=== PATIENT | male | born 1950 | race Two or more races ===

== ENCOUNTER → 2016-11-29 | Outpatient (CLI) | payer MEDICARE, OTHER ==
--- NOTE | 2016-12-13 00:05 | ECWPNPC ---
PATIENT NAME: ROBERT ARAUJO : 1950 GENDER: MALE VISIT DATE: 11/29/2016 DISCHARGE DATE: 11/29/16 1058 VISIT LOCKED DATE TIME: PHYSICIAN: STEPH LOUIS RESOURCE: STEPH LOUIS REASON FOR APPOINTMENT 1. BACK HISTORY OF PRESENT ILLNESS NEW PATIENT CONSULT: WHEN DID YOUR PAIN FIRST START? . BRIEFLY DESCRIBE HOW YOUR PAIN STARTED? . HOW DOES YOUR PAIN CHANGE WITH TIME? . DOES YOUR PAIN AWAKEN YOU FROM SLEEP? . HOW MANY HOURS OF SLEEP DO YOU NORMALLY GET? . ANY DIAGNOSTIC TESTING? . FACILITY WHERE TESTS WERE DONE? ____. PAIN TREATMENT TREATMENT YES CANCER HAVE YOU EVER HAD ANY TYPE OF CANCER?NO NO. PAIN SCREENING: PATIENT HAS A COMPLAINT OF ACUTE OR CHRONIC PAIN :YES FALL RISK SCREENING: SCREENING :NO FALLS IN THE PAST YEAR CASEY INVENTORY: QUESTIONNAIRE ASSESSEDTBD SCORE VALUE CALCULATED TBD TODAY'S VISIT: NOTES: REFERRED BY Handy CARPENTER PA-C [facility] NEUROSURGERY FOR LOW BACK PAIN. IS S/P LUMBAR FUSION L4 AND L5. COMPLETED IN 1993 AND LUMBAR DISCECTOMY COMPLETED IN 2003. SAW DR LERNER FOR CARDIOLOGY SECOND OPINION. DURING THE DISCUSSION AN MRI OF THE LUMBAR SPINE WAS ORDERED. PER PT A LARGE LUMBAR HERNIATED DISC WAS FOUND AND REFERRAL MADE TO DR MCKEON FOR A SURGICAL OPINION.AFTER SURGERY 2003 PAIN WAS UNDER CONTROL UNTIL FALL 2015. HAS HX OF A DRAINAGE FROM A DRAIN AREA IN THE LOW BACK. PAIN IS CENTERED ACROSS THE BACK TO HIPS. NOTES N/T IN LEFT LEG SINCE 1994. NO SHOOTING PAIN TO EITHER LEG. IS NOTING SLEEP IS DISRUPTED BY PAIN. IS ALSO NOTING PAIN RADIATING UP SPINE RIGHT SIDE TO BASE OF NECK. IS NOTING EAKNESS IN BOTH LEGS CAN NO LONGER WALK USUAL 1/2 MILE CIRCUIT WITHOUT SITTING DOWN.. CURRENT MEDICATIONS TAKING METFORMIN HCL 500 MG TABLET 1 TABLET WITH MEALS ORALLY DAILY TAKING IRON (FERROUS GLUCONATE) 256 (28 FE) MG TABLET ORALLY TAKES 65 MG DAILY AT SUPPERTIME, NOTES: TAKES 65MG TAKING METOPROLOL TARTRATE 50 MG TABLET 1 TABLET WITH FOOD ORALLY DAILY TAKING VENLAFAXINE HCL ER 150 MG CAPSULE EXTENDED RELEASE 24 HOUR 1 CAPSULE WITH FOOD ORALLY AT BEDTIME TAKING NITROGLYCERIN 0.4 MG TABLET SUBLINGUAL SUBLINGUAL NEEDED TAKING MELOXICAM 7.5 MG TABLET (PRIOR AUTH: RX REF#:[id number]) ORAL DAILY TAKING NITROGLYCERIN 0.4 MG/HR PATCH 24 HOUR (PRIOR AUTH: RX REF#:[id number]) TRANSDERMAL DAILY TAKING GABAPENTIN 300 MG CAPSULE (PRIOR AUTH: RX REF#:[id number]) ORAL DAILY (MON AND MONDAY) TAKING ATORVASTATIN CALCIUM 20 MG TABLET (PRIOR AUTH: RX REF#:[id number]) ORAL DAILY TAKING PANTOPRAZOLE SODIUM 40 MG TABLET DELAYED RELEASE (PRIOR AUTH: RX REF#:[id number]) ORAL DAILY TAKING LISINOPRIL 20 MG TABLET (PRIOR AUTH: RX REF#:[id number]) ORAL 2 IF NEEDED IN AM TAKING RANEXA 500 MG TABLET EXTENDED RELEASE 12 HOUR (PRIOR AUTH: RX REF#:[id number]) ORAL BID TAKING TOPROL XL 50 MG TABLET EXTENDED RELEASE 24 HOUR (PRIOR AUTH: RX REF#:[id number]) ORAL TAKING CLOPIDOGREL BISULFATE 75 MG TABLET (PRIOR AUTH: RX REF#:[id number]) ORAL DAILY TAKING ESOMEPRAZOLE MAGNESIUM 40 MG CAPSULE DELAYED RELEASE (PRIOR AUTH: RX REF#:[id number]) ORAL TAKING AMLODIPINE BESYLATE 5 MG TABLET (PRIOR AUTH: RX REF#:[id number]) ORAL DAILY TAKING ISOSORBIDE MONONITRATE ER 30 MG TABLET EXTENDED RELEASE 24 HOUR (PRIOR AUTH: RX REF#:[id number]) ORAL DAILY TAKING SYNTHROID 100 MCG TABLET (PRIOR AUTH: RX REF#:[id number]) ORAL DAILY TAKING VENLAFAXINE HCL ER 37.5 MG CAPSULE EXTENDED RELEASE 24 HOUR (PRIOR AUTH: RX REF#:[id number]) ORAL DAILY MEDICATION LIST REVIEWED AND RECONCILED WITH THE PATIENT PAST MEDICAL HISTORY HTN DM FL WITH HX STENT PLACEMENT ATYPICAL CHEST PAIN HYPOTHYROIDISM LOW BACK PAIN WITH LEFT SIDED RADICULAR PAIN FOLLOWING LUMBAR SURGERY ALLERGIES KEY-SELTZER: CHEST PAIN CHLORPHENIRAMINE MALEATE: UNSURE PHENYLTOLOXAMINE-ACETAMINOPHEN: UNSURE SURGICAL HISTORY L4-L5 DISC FUSION 1993 DISC REMOVAL LOW BACK 2009 CHOLECYSTECTOMY 1988 RIGHT SIDED HERNIA REPAIR 1970 LEFT SIDED HERNIA REPAIR 1980S FAMILY HISTORY FATHER: 95 YRS, DIAGNOSED WITH HEART DISEASE MOTHER: 89 YRS, DIAGNOSED WITH DIABETES SOCIAL HISTORY GENERAL: TOBACCO USE ARE YOU A:NONSMOKER QUIT SMOKING YEARS AGO ALCOHOL SCREENING DID YOU HAVE A DRINK CONTAINING ALCOHOL IN THE PAST YEAR?YES HOW OFTEN DID YOU HAVE A DRINK CONTAINING ALCOHOL IN THE PAST YEAR?MONTHLY OR LESS (1 POINT) POINTS1 INTERPRETATIONNEGATIVE CAFFEINE CAFFEINE USE?YES DIET: DIABETIC. EXERCISE: DAILY, WALKS, OUTDOORS PERSON, KEEPS BUSY WHEN HE CAN HEART RATE CAN DROP DOWN TO 50S AND HE WILL SLEEP ALL DAY (MD SAYS PROBLEM WITH BLOOD FLOW).. MARITAL STATUS: . MORMONISM [id number] MORMON NO MORAVIAN BELIEFS THAT WOULD IMPACT HEALTH CARE. LANGUAGE LANGUAGES SPOKEN:UZBEK LEARNING BARRIERS / SPECIAL NEEDS HEARING IMPAIRED?YES :HEARING AIDES VISION IMPAIRED?YES :CORRECTIVE LENSES COGNITIVELY IMPAIRED?NO READINESS TO LEARN?YES LEARNING PREFERENCES?NO LEARNING CAPABILITIES PRESENT?YES SPECIAL DEVICES?NO HOUSEHOLD COOK NEEDED?NO PAIN CLINIC PFS, CLERGY, PUBLIC HEALTH REFERRALS PFS REFERRAL NEEDED?NO HAS THE PATIENT BEEN EDUCATED REGARDING HIS/HER PLAN OF CARE?YES HAS THE PATIENT BEEN EDUCATED REGARDING PAIN, THE RISK FOR PAIN, THE IMPORTANCE OF EFFECTIVE PAIN MANAGEMENT, AND THE PAIN ASSESSMENT PROCESS?YES CLERGY REFERRAL NEEDED?NO PUBLIC HEALTH REFERRAL NEEDED?NO WAS THE PROVIDER NOTIFIED OF ANY PERTINENT INFO?NO PATIENT: ____. ADVANCE DIRECTIVES HEALTH CARE PROXY?YES NAME OF HCP ROBERT ARAUJO (SON)PHONE # [phone] DO YOU HAVE A COPY WITH YOU?NO DO YOU HAVE A DNR?NO WOULD YOU LIKE MORE INFORMATION?NO LIVING WILL?YES DO YOU HAVE A COPY WITH YOU?NO POWER OF PROJECT COORDINATOR RN?YES NAME OF POA? PHYIILS Winnie [phone] DO YOU HAVE A COPY WITH YOU?NO HAVE YOU HAD A COPY OF ANY ADVANCED DIRECTIVE (LISTED ABOVE) ON A PREVIOUS MEDICAL RECORDS AT [facility]?NO HOSPITALIZATION/MAJOR DIAGNOSTIC PROCEDURE SEE ABOVE HAD CARDIAC CATH 1 WEEK AGO (NOV 17) WITH RESULTS NEGATIVE REVIEW OF SYSTEMS REVIEWED BY: PROVIDER: . CONSTITUTIONAL: ANY CHANGE IN YOUR MEDICAL CONDITION? NO . CHILLS NO . FEVER NO . INFECTION: DO YOU HAVE NEW INFECTIONS? NO . DO YOU HAVE HISTORY OF MRSA? NO . MUSCULOSKELETAL: ANY NEW PATTERNS OF PAIN OR NUMBNESS? NO . SYTEMIC LUPUS NO . GASTROENTEROLOGY: ANY NEW CHANGE IN BOWEL CONTROL? NO . BARRETTS ESOPHAGUS NO . CIRRHOSIS NO . HEPATITIS NO . LIVER FAILURE NO . ACID REFLUX YES . UNEXPLAINED WEIGHT LOSS NO . GENITOURINARY: ANY NEW CHANGE IN BLADDER CONTROL? NO . IS THERE A CHANCE YOU COULD BE ? NO . HEMATOLOGY/LYMPH: DO YOU TAKE ANY BLOOD THINNERS? (FOR EXAMPLE- COUMADIN, PLAVIX, AGGRENOX, PLATEL, PRADAXA, OR XARELTO) YES . WHEN WAS YOUR LAST DOSE? DATE: TIME: . LOW PLATELET COUNT NO . SICKLE CELL DISEASE NO . VON WILLIEBRANDS NO . FACTOR V LEIDEN NO . THALLASEMIA NO . ANEMIA NO . EASY BRUISING NO . NEUROLOGY: HAVE YOU FALLEN IN THE PAST 6 MONTHS? NO . ANY NEW EXTREMITY NUMBNESS OR WEAKNESS? NO . HEAD INJURY NO . DEMENTIA NO . CEREBRAL PALSY NO . MULTIPLE SCLEROSIS NO . DIZZINESS NO . HEADACHE NO . STROKES HX TIA . VERTIGO NO . CARDIOLOGY: DO YOU HAVE A PACEMAKER OR DEFIBRILLATOR? NO . ANGINA NO . HEART ATTACK YES - 2014 - ON PLAVIX EVER SINCE . HEART SURGERY NO . CONGESTIVE HEART FAILURE/FLUID OVERLOAD NO . CHEST PAIN HX OF CHEST [place]ON AND SPASMS. HAD CARDIAC CATH LAST WEEK - REPORTED ALL CLEAR. HAS HX OF INTERMITTANT BRADYCARDIA . HIGH BLOOD PRESSURE YES . IRREGULAR HEART BEAT YES, AT TIMES . RESPIRATORY: SLEEP APNEA NO TESTED . HAVE YOU BEEN SICK IN THE PAST WEEK? NO . FEVER NO . FLU LIKE SYMPTOMS? NO . CPAP NO . BYPAP NO . ASTHMA NO . EMPHYSEMA NO . CHRONIC LUNG DISEASES NO . SHORTNESS OF BREATH ON EXERTION YES . DO YOU USE ANY TYPE OF TOBACCO (SMOKE, SMOKELESS, CHEW)? NO . COUGH NO . SNORING NO . INTEGUMENTARY: DO YOU HAVE ANY RASHES OR OPEN SORES? NO . ALLERGIC/IMMUNO: ARE YOU ALLERGIC TO SHELLFISH OR IV DYE? NO . ANY NEW ALLERGIES? NO . PSYCHIATRIC: DO YOU HAVE THOUGHTS OF HURTING YOURSELF OR SOMEONE ELSE? NO . ARE YOU ABUSED, NEGLECTED, OR IN AN UNSAFE ENVIRONMENT? NO . ENDOCRINOLOGY: ARE YOU DIABETIC? YES - 79- 115 BS . THYROID DISORDER HYPOTHYROID - ON REPLACEMENT . OTHER: DO YOU NEED ANY PRESCRIPTIONS? NO . IF YES, PLEASE LIST: ____ . ANY NEW PROBLEMS WITH YOUR MEDICATIONS? NO . WHEN DID YOU LAST EAT? ____ . WHEN DID YOU LAST DRINK? ____ . WHAT DID YOU LAST DRINK? ____ . NAME OF PERSON DRIVING YOU HOME? ____ . DO YOU HAVE ANY OTHER QUESTIONS OR CONCERNS NO . VITAL SIGNS WT 201.4 LBS, HT 5 FT 6 IN, BMI 32.50 INDEX, BP 126/69 MM HG, HR 62 /MIN, RR 18 /MIN, OXYGEN SAT % 95, REVIEWED BY: NL. EXAMINATION GENERAL EXAMINATION: GENERAL APPEARANCE:WELL GROOMED, OBESE. PSYCHAFFECT FLAT, ALERT , ORIENTED X 3 . HEENT:NORMOCEPHALIC, NO LYMPHADENOPATHY, NO THYROMEGLY. LUNGS:CLEAR TO AUSCULTATION BILATERALLY, NO WHEEZES, RALES OR RHONCHI. HEART:NO CAROTID BRUITS,, HEART RATE REGULAR, NORMAL S1S2, NORMAL. MUSCULOSKELETAL:MUSCLE STRENGTH TESTING 5/5 BILATERAL UPPER EXTREMITIES 4+ LEFTLE, 5- RLE. TENDER TO PALPATION OVER LUMBAR SPINOUS PROCESSES, BILATERAL SACRAL ILIAC JOINTS. HEALED SKIN LESION AT BASE OF INCISION , NO ERRYTHEMA, NO EXUDATE. CAN FLEX TO 30 DEGREES, EXTEND TO 10 DEGREES. SLR + ON RIGHT AT 20 DEGREES. PAIN WITH PELVIC COMPRESSION AND PATTRICKS TESTING ON RIGHT. . JOINTS:RIGHT ANKLE, KNEES. NEUROLOGIC EXAM:SENS CHANGE RIGHT ANKLE, LATERAL LEFT THIGH. DTR'S TRACE UPPER AND LOWER EXTREMITIES. NO CLONUS. . DIAGNOSTIC TESTS REVIEWEDMRI OF LUMBAR SPINE WITH AND WITHOUT CONTRAST COMPLETED ON 10/19/16 DEMONSTATES LARGE DISC HERNIATION AT L3 WITH SEVERE IMPINGEMENT ON THE LEFT. ALSO NOTED IS A DISC HERNIATION AT L5 WITH MILD IMPINGEMENT. THE RADIALOGIST BASILIO DOWNING MD ALSO REPORTS THAT HE DID LOOK FOR REPORTED SINUS TRACT FROM PREVIOUS SURGERY - SLIGHT EDEMA IS NOTED IN THE LOWER LEFT ASPECT BUT NO DEFINITE TRACT IS SEEN. . 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 NEED OK TO PUT PLAVIX ON HOLD FOR 7 DAYS. WITH PROCEDURE ON DAY 8 (DR LERNER AND DR AGUILLON [facility] CARDIOLOG[facility]) HOLD DIABETES MEDS AM OF PROCEDUREKEEP WALKING. MEDS PER PRIMARY DOCTOR. PREVENTIVE MEDICINE REVIEWED PRE PROCEDURE CARE AND DISCUSSED PROCEDURE AND EXPECTATIONS/ PT EXPRESSED UNDERSTANDING OF ALL. PROCEDURE CODES FA211 ESTABILISHED PATIENT [facility] FACILITY CHARGE DISPOSITION & COMMUNICATION FOLLOW UP AFTER INJECTION (REASON: CHECK AUTH FOR BILATERAL TRANFORAMINAL EPIDURAL/ GET OK TO STOP PLAVIX) ELECTRONICALLY SIGNED BY RANJEET GUIDO ON 12/12/2016 AT 03:53 PM EDT DISCLAIMER : THIS IS A VISIT SUMMARY EXTRACTED FROM THE [employer] CHART. IT IS NOT A COPY OF THE [employer] PROGRESS NOTE. LORRIE
== END ==
LOC: M PAIN 09:15
PROVIDERS: ATTEND Nurse Practitioner Family
DX: M51.26 Other intervertebral disc displacement, lumbar region (principal); M96.1 Postlaminectomy syndrome, not elsewhere classified; I10 Essential (primary) hypertension; E11.9 Type 2 diabetes mellitus without complications; E03.9 Hypothyroidism, unspecified; I25.2 Old myocardial infarction; Z95.5 Presence of coronary angioplasty implant and graft; Z79.84 Long term (current) use of oral hypoglycemic drugs; Z79.899 Other long term (current) drug therapy; Z87.891 Personal history of nicotine dependence; Z88.8 Allergy status to other drugs, medicaments and biological substances

== ENCOUNTER → 2016-12-28 | Outpatient (CLI) | payer MEDICARE, OTHER ==
--- NOTE | 2017-01-09 23:54 | ECWPNPC ---
PATIENT NAME: ROBERT ARAUJO : 1950 GENDER: MALE VISIT DATE: 12/28/2016 DISCHARGE DATE: 12/28/16 1307 VISIT LOCKED DATE TIME: PHYSICIAN: LAUREEN TREVIZO RESOURCE: LAUREEN TREVIZO REASON FOR APPOINTMENT 1. LOW BACK PAIN HISTORY OF PRESENT ILLNESS HISTORY OF PRESENT ILLNESS: PAIN THE PATIENT DESCRIBES THE PAIN... 66 YEAR OLD MALE PATIENT WITH HISTORY OF CHRONIC LOW BACK PAIN. PATIENT DESCRIBES THE PAIN TENDER AND SORE AND HAVING IT ALL THE TIME WITH A PAIN SCORE OF 6/10. PATIENT RECEIVED A CAUDAL EPIDURAL TODAY AND REPORTS THE PAIN IS STILL PRESENT AT THIS TIME. PATIENT STATES THAT HIS PAIN GOES DOWN HIS LEGS AND MAKES IT DIFFICULT TO DO EVERYDAY THINGS. PATIENT DENIES UNEXPLAINABLE WEIGHT LOSS, FEVER, CHILLS, NEW CHANGES ON HIS URINARY OR BOWEL CONTROL. FALL RISK SCREENING: SCREENING :NO FALLS IN THE PAST YEAR CURRENT MEDICATIONS TAKING METFORMIN HCL 500 MG TABLET 1 TABLET WITH MEALS ORALLY DAILY TAKING IRON (FERROUS GLUCONATE) 256 (28 FE) MG TABLET ORALLY TAKES 65 MG DAILY AT SUPPERTIME TAKING METOPROLOL TARTRATE 50 MG TABLET 1 TABLET WITH FOOD ORALLY DAILY TAKING VENLAFAXINE HCL ER 150 MG CAPSULE EXTENDED RELEASE 24 HOUR 1 CAPSULE WITH FOOD ORALLY AT BEDTIME, NOTES: RAN OUT AND HASN'T RECEIVED IT YET TAKING NITROGLYCERIN 0.4 MG TABLET SUBLINGUAL SUBLINGUAL NEEDED TAKING MELOXICAM 7.5 MG TABLET (PRIOR AUTH: RX REF#:[id number]) ORAL DAILY TAKING NITROGLYCERIN 0.4 MG/HR PATCH 24 HOUR (PRIOR AUTH: RX REF#:[id number]) TRANSDERMAL DAILY TAKING GABAPENTIN 300 MG CAPSULE (PRIOR AUTH: RX REF#:[id number]) ORAL DAILY (MON AND MONDAY) TAKING ATORVASTATIN CALCIUM 20 MG TABLET (PRIOR AUTH: RX REF#:[id number]) ORAL DAILY TAKING PANTOPRAZOLE SODIUM 40 MG TABLET DELAYED RELEASE (PRIOR AUTH: RX REF#:[id number]) ORAL DAILY TAKING LISINOPRIL 20 MG TABLET (PRIOR AUTH: RX REF#:[id number]) ORAL 2 IF NEEDED IN AM TAKING RANEXA 500 MG TABLET EXTENDED RELEASE 12 HOUR (PRIOR AUTH: RX REF#:[id number]) ORAL BID TAKING TOPROL XL 50 MG TABLET EXTENDED RELEASE 24 HOUR (PRIOR AUTH: RX REF#:[id number]) ORAL TAKING CLOPIDOGREL BISULFATE 75 MG TABLET (PRIOR AUTH: RX REF#:[id number]) ORAL DAILY TAKING ESOMEPRAZOLE MAGNESIUM 40 MG CAPSULE DELAYED RELEASE (PRIOR AUTH: RX REF#:[id number]) ORAL TAKING AMLODIPINE BESYLATE 5 MG TABLET (PRIOR AUTH: RX REF#:[id number]) ORAL DAILY TAKING ISOSORBIDE MONONITRATE ER 30 MG TABLET EXTENDED RELEASE 24 HOUR (PRIOR AUTH: RX REF#:[id number]) ORAL DAILY TAKING SYNTHROID 100 MCG TABLET (PRIOR AUTH: RX REF#:[id number]) ORAL DAILY TAKING VENLAFAXINE HCL ER 37.5 MG CAPSULE EXTENDED RELEASE 24 HOUR (PRIOR AUTH: RX REF#:[id number]) ORAL DAILY MEDICATION LIST REVIEWED AND RECONCILED WITH THE PATIENT PAST MEDICAL HISTORY HTN DM LA WITH HX STENT PLACEMENT ATYPICAL CHEST PAIN HYPOTHYROIDISM LOW BACK PAIN WITH LEFT SIDED RADICULAR PAIN FOLLOWING LUMBAR SURGERY ALLERGIES KEY-SELTZER: CHEST PAIN CHLORPHENIRAMINE MALEATE: UNSURE PHENYLTOLOXAMINE-ACETAMINOPHEN: UNSURE SOCIAL HISTORY GENERAL: TOBACCO USE ARE YOU A:NONSMOKER QUIT SMOKING YEARS AGO ALCOHOL SCREENING DID YOU HAVE A DRINK CONTAINING ALCOHOL IN THE PAST YEAR?YES POINTS1 INTERPRETATIONNEGATIVE HOW OFTEN DID YOU HAVE A DRINK CONTAINING ALCOHOL IN THE PAST YEAR?MONTHLY OR LESS (1 POINT) CAFFEINE CAFFEINE USE?YES DIET: DIABETIC. EXERCISE: DAILY, WALKS, OUTDOORS PERSON, KEEPS BUSY WHEN HE CAN HEART RATE CAN DROP DOWN TO 50S AND HE WILL SLEEP ALL DAY (MD SAYS PROBLEM WITH BLOOD FLOW).. MARITAL STATUS: . GNOSTICISM [id number] ISLAM NO EPISCOPAL BELIEFS THAT WOULD IMPACT HEALTH CARE. 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 VISION IMPAIRED?YES :CORRECTIVE LENSES COGNITIVELY IMPAIRED?NO READINESS TO LEARN?YES LEARNING PREFERENCES?NO LEARNING CAPABILITIES PRESENT?YES EMOTIONAL BARRIERS?NO SPECIAL DEVICES?NO EMERGENCY SERVICE RESTORER NEEDED?NO PAIN CLINIC PFS, CLERGY, PUBLIC HEALTH REFERRALS PFS REFERRAL NEEDED?NO CLERGY REFERRAL NEEDED?NO PUBLIC HEALTH REFERRAL NEEDED?NO WAS THE PROVIDER NOTIFIED OF ANY PERTINENT INFO?NO HAS THE PATIENT BEEN EDUCATED REGARDING HIS/HER PLAN OF CARE?YES HAS THE PATIENT BEEN EDUCATED REGARDING PAIN, THE RISK FOR PAIN, THE IMPORTANCE OF EFFECTIVE PAIN MANAGEMENT, AND THE PAIN ASSESSMENT PROCESS?YES PATIENT: ____. ADVANCE DIRECTIVES HEALTH CARE PROXY?YES NAME OF HCP ROBERT ARAUJO (SON)PHONE # [phone] DO YOU HAVE A COPY WITH YOU?NO DO YOU HAVE A DNR?NO WOULD YOU LIKE MORE INFORMATION?NO LIVING WILL?YES DO YOU HAVE A COPY WITH YOU?NO POWER OF THERAPEUTIC ACTIVITIES SERVICES WORKER?YES NAME OF POA? CARLOS [phone] DO YOU HAVE A COPY WITH YOU?NO HAVE YOU HAD A COPY OF ANY ADVANCED DIRECTIVE (LISTED ABOVE) ON A PREVIOUS MEDICAL RECORDS AT [facility]?NO REVIEW OF SYSTEMS REVIEWED BY: PROVIDER: LAUREEN TREVIZO MD . CONSTITUTIONAL: ANY CHANGE IN YOUR MEDICAL CONDITION? NO . CHILLS NO . FEVER NO . INFECTION: DO YOU HAVE NEW INFECTIONS? NO . DO YOU HAVE HISTORY OF MRSA? NO . MUSCULOSKELETAL: ANY NEW PATTERNS OF PAIN OR NUMBNESS? NO . GASTROENTEROLOGY: ANY NEW CHANGE IN BOWEL CONTROL? NO . GENITOURINARY: ANY NEW CHANGE IN BLADDER CONTROL? NO . IS THERE A CHANCE YOU COULD BE ? NO . HEMATOLOGY/LYMPH: DO YOU TAKE ANY BLOOD THINNERS? (FOR EXAMPLE- COUMADIN, PLAVIX, AGGRENOX, PLATEL, PRADAXA, OR XARELTO) YES, PLAVIX . WHEN WAS YOUR LAST DOSE? DATE:12/19/16 TIME: 0800 . NEUROLOGY: HAVE YOU FALLEN IN THE PAST 6 MONTHS? NO . ANY NEW EXTREMITY NUMBNESS OR WEAKNESS? NO . CARDIOLOGY: DO YOU HAVE A PACEMAKER OR DEFIBRILLATOR? NO . RESPIRATORY: HAVE YOU BEEN SICK IN THE PAST WEEK? NO . FEVER NO . FLU LIKE SYMPTOMS? NO . COUGH NO . INTEGUMENTARY: DO YOU HAVE ANY RASHES OR OPEN SORES? NO . ALLERGIC/IMMUNO: ARE YOU ALLERGIC TO SHELLFISH OR IV DYE? NO . ANY NEW ALLERGIES? NO . PSYCHIATRIC: DO YOU HAVE THOUGHTS OF HURTING YOURSELF OR SOMEONE ELSE? NO . ARE YOU ABUSED, NEGLECTED, OR IN AN UNSAFE ENVIRONMENT? NO . ENDOCRINOLOGY: ARE YOU DIABETIC? YES . OTHER: DO YOU NEED ANY PRESCRIPTIONS? NO . IF YES, PLEASE LIST: ____ . ANY NEW PROBLEMS WITH YOUR MEDICATIONS? NO . WHEN DID YOU LAST EAT? ____ . WHEN DID YOU LAST DRINK? ____ . WHAT DID YOU LAST DRINK? ____ . NAME OF PERSON DRIVING YOU HOME? ____ . DO YOU HAVE ANY OTHER QUESTIONS OR CONCERNS NO, NOT AT PRESENT TIME . VITAL SIGNS WT 198.8 LBS, HT 5 FT 6 IN, BMI 32.08 INDEX, BP 135/78 MM HG, HR 56 /MIN, RR 18 /MIN, TEMP 97.5 F, OXYGEN SAT % 96%, NA INITIALS MP 1156, REVIEWED BY: CS. EXAMINATION : PATIENT IS ALERT O X 3 AND COOPERATIVE. TENDERNESS IN THE LOWER BACK AND PARASPINAL MUSCLE GROUP. MRI DONE ON 10/19/16 OF THE LUMBAR SPINE SHOWS DISC BULGE AT L3-L4. PATIENT LIMPING FROM LEFT LEG. LEFT LEG IS WEAKER THEN THE RIGHT AT EXTENSION AND FLEXION. SCAR FROM BACK SURGERY OPEN BUT DRY, PATIENT REPORTS NOT FLUID LEAKING FROM IT. 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 TREATMENT POSTLAMINECTOMY SYNDROME, NOT ELSEWHERE CLASSIFIED NOTES: WE DISCUSSED SEVERAL ISSUES WITH MR. ARAUJO'S PAIN MANAGEMENT CASE. AT THIS TIME THE PATIENT WILL CONTINUE WITH THE SAME MEDICATION REGIME BEFORE. I WOULD LIKE THE PATIENT TO RECEIVE AN UPDATED MRI DUE TO THE SINUS TRACT. I WOULD ALSO LIKE THE PATIENT TO HAVE A NEUROSURGICAL CONSULT. PATIENT WILL START USING PLAVIX AGAIN TOMORROW. PATIENT WILL RETURN TO THE CLINIC IN [address] TO DISCUSS WHAT DR. ALEX ROBERTSON HAD STATES WELL RECEIVING THE MRI. INSTRUCTIONS WERE GIVEN, QUESTIONS WERE ANSWERED, PATIENT REPORTS UNDERSTANDING AND AGREES WITH THE PLAN. I, PAUL CRONIN, DOCUMENTED THE ABOVE INFORMATION ACTING A SCRIBE FOR DR. TREVIZO. I HAVE REVIEWED THE ABOVE DOCUMENT, WRITTEN BY PAUL HERNANDEZ AND I VERIFY THAT IT IS ACCURATE. PROCEDURE CODES FA211 ESTABILISHED PATIENT [facility] FACILITY CHARGE G8427 DOC MEDS VERIFIED W/PT OR RE G8730 PAIN ASSESS POS TOOL F/U PLAN DOC DISPOSITION & COMMUNICATION FOLLOW UP 3 WEEKS ELECTRONICALLY SIGNED BY LAUREEN TREVIZO MD ON 01/09/2017 AT 05:02 PM EDT DISCLAIMER : THIS IS A VISIT SUMMARY EXTRACTED FROM THE [employer] CHART. IT IS NOT A COPY OF THE [employer] PROGRESS NOTE. MTDD
== END ==
LOC: M PAIN 11:15
PROVIDERS: ATTEND Anesthesiology
DX: M96.1 Postlaminectomy syndrome, not elsewhere classified (principal); M51.16 Intervertebral disc disorders with radiculopathy, lumbar region; I10 Essential (primary) hypertension; E11.9 Type 2 diabetes mellitus without complications; I25.2 Old myocardial infarction; E03.9 Hypothyroidism, unspecified; Z88.8 Allergy status to other drugs, medicaments and biological substances; Z79.01 Long term (current) use of anticoagulants; Z79.84 Long term (current) use of oral hypoglycemic drugs; Z79.899 Other long term (current) drug therapy; Z87.891 Personal history of nicotine dependence

== ENCOUNTER → 2016-12-28 | Outpatient (CLI) | payer MEDICARE, OTHER ==
[~2016-12-28] MED LIST: ISOVUE-M 300 61% 15ML VIAL (Q9967) As Ordered ONE; LIDOCAINE 1% SDV INJ 30 ML VIAL As Ordered ONE; diazePAM 5 MG TAB As Ordered ONE; methylPREDNISolone SUSP 40 MG/ML (DEPO-medrol) VIAL (J1030) As Ordered ONE
--- NOTE | 2016-12-29 08:50 | REP ---
FLUORO GUIDED SPINE INJECTION: All imaging was reviewed with Dr. Barrera prior to dictation. The portable C-arm is provided in the OR for Dr. Cortez for fluoroscopic guidance. Three intraoperative fluoroscopic spot films were obtained using last image hold technology for needle placement verification for this fluoroscopic guidance spine injection. The films are on the PACS system and are available for review. 15 seconds of fluoroscopy time were utilized for this procedure. Reviewed by DOROTHEA Cash 12/29/2016 09:45 AEdited and Signed by Michoacano Barrera MD 12/29/2016 08:00 P
--- NOTE | 2017-01-04 01:01 | ECWPNPC ---
PATIENT NAME: ROBERT ARAUJO : 1950 GENDER: MALE VISIT DATE: 12/28/2016 DISCHARGE DATE: 12/28/16 1148 VISIT LOCKED DATE TIME: PHYSICIAN: LAUREEN TREVIZO RESOURCE: LAUREEN TREVIZO REASON FOR APPOINTMENT 1. TRANFORAMINAL EPIDURAL HISTORY OF PRESENT ILLNESS HISTORY OF PRESENT ILLNESS: PAIN THE PATIENT DESCRIBES THE PAIN... FALL RISK SCREENING: SCREENING :NO FALLS IN THE PAST YEAR CURRENT MEDICATIONS TAKING METFORMIN HCL 500 MG TABLET 1 TABLET WITH MEALS ORALLY DAILY, NOTES: 12-27-16 WITH DINNER TAKING IRON (FERROUS GLUCONATE) 256 (28 FE) MG TABLET ORALLY TAKES 65 MG DAILY AT SUPPERTIME, NOTES: TAKES 65MG 12-27-16 AM TAKING METOPROLOL TARTRATE 50 MG TABLET 1 TABLET WITH FOOD ORALLY DAILY, NOTES: 12-27-16 TAKING VENLAFAXINE HCL ER 150 MG CAPSULE EXTENDED RELEASE 24 HOUR 1 CAPSULE WITH FOOD ORALLY AT BEDTIME, NOTES: OUT OF MED TAKING NITROGLYCERIN 0.4 MG TABLET SUBLINGUAL SUBLINGUAL NEEDED, NOTES: 12-26-16 TAKING MELOXICAM 7.5 MG TABLET (PRIOR AUTH: RX REF#:[id number]) ORAL DAILY, NOTES: 12-27-16 AM TAKING NITROGLYCERIN 0.4 MG/HR PATCH 24 HOUR (PRIOR AUTH: RX REF#:[id number]) TRANSDERMAL DAILY, NOTES: ON TAKING GABAPENTIN 300 MG CAPSULE (PRIOR AUTH: RX REF#:[id number]) ORAL DAILY (MON AND MONDAY), NOTES: 12-27-16 AM TAKING ATORVASTATIN CALCIUM 20 MG TABLET (PRIOR AUTH: RX REF#:[id number]) ORAL DAILY, NOTES: 12-27-16 AM TAKING PANTOPRAZOLE SODIUM 40 MG TABLET DELAYED RELEASE (PRIOR AUTH: RX REF#:[id number]) ORAL DAILY, NOTES: 12-27-16 AM TAKING LISINOPRIL 20 MG TABLET (PRIOR AUTH: RX REF#:[id number]) ORAL 2 IF NEEDED IN AM, NOTES: 12-27-16 AM TAKING RANEXA 500 MG TABLET EXTENDED RELEASE 12 HOUR (PRIOR AUTH: RX REF#:[id number]) ORAL BID, NOTES: 12-27-16 AM TAKING TOPROL XL 50 MG TABLET EXTENDED RELEASE 24 HOUR (PRIOR AUTH: RX REF#:[id number]) ORAL , NOTES: 12-27-16 AM TAKING CLOPIDOGREL BISULFATE 75 MG TABLET (PRIOR AUTH: RX REF#:[id number]) ORAL DAILY, NOTES: 12-19-16 0800 TAKING ESOMEPRAZOLE MAGNESIUM 40 MG CAPSULE DELAYED RELEASE (PRIOR AUTH: RX REF#:[id number]) ORAL , NOTES: 12-27-16 AM TAKING AMLODIPINE BESYLATE 5 MG TABLET (PRIOR AUTH: RX REF#:[id number]) ORAL DAILY, NOTES: 12-27-16 AM TAKING ISOSORBIDE MONONITRATE ER 30 MG TABLET EXTENDED RELEASE 24 HOUR (PRIOR AUTH: RX REF#:[id number]) ORAL DAILY, NOTES: 12-27-16 TAKING SYNTHROID 100 MCG TABLET (PRIOR AUTH: RX REF#:[id number]) ORAL DAILY, NOTES: 12-27-16 AM TAKING VENLAFAXINE HCL ER 37.5 MG CAPSULE EXTENDED RELEASE 24 HOUR (PRIOR AUTH: RX REF#:[id number]) ORAL DAILY, NOTES: 12-27-16 AM MEDICATION LIST REVIEWED AND RECONCILED WITH THE PATIENT PAST MEDICAL HISTORY HTN DM ID WITH HX STENT PLACEMENT ATYPICAL CHEST PAIN HYPOTHYROIDISM LOW BACK PAIN WITH LEFT SIDED RADICULAR PAIN FOLLOWING LUMBAR SURGERY ALLERGIES KEY-SELTZER: CHEST PAIN CHLORPHENIRAMINE MALEATE: UNSURE PHENYLTOLOXAMINE-ACETAMINOPHEN: UNSURE SOCIAL HISTORY GENERAL: TOBACCO USE ARE YOU A:NONSMOKER QUIT SMOKING YEARS AGO ALCOHOL SCREENING DID YOU HAVE A DRINK CONTAINING ALCOHOL IN THE PAST YEAR?YES POINTS1 INTERPRETATIONNEGATIVE HOW OFTEN DID YOU HAVE A DRINK CONTAINING ALCOHOL IN THE PAST YEAR?MONTHLY OR LESS (1 POINT) CAFFEINE CAFFEINE USE?YES DIET: DIABETIC. EXERCISE: DAILY, WALKS, OUTDOORS PERSON, KEEPS BUSY WHEN HE CAN HEART RATE CAN DROP DOWN TO 50S AND HE WILL SLEEP ALL DAY (MD SAYS PROBLEM WITH BLOOD FLOW).. MARITAL STATUS: . ZOROASTRIANISM [id number] ORIENTAL ORTHODOX NO HOAHAOISM BELIEFS THAT WOULD IMPACT HEALTH CARE. LANGUAGE LANGUAGES SPOKEN:CZECH LEARNING BARRIERS / SPECIAL NEEDS :CORRECTIVE LENSES VISION IMPAIRED?YES READINESS TO LEARN?YES LEARNING CAPABILITIES PRESENT?YES BROOMCORN SCRAPER NEEDED?NO :HEARING AIDES HEARING IMPAIRED?YES LEARNING PREFERENCES?NO SPECIAL DEVICES?NO COGNITIVELY IMPAIRED?NO PAIN CLINIC PFS, CLERGY, PUBLIC HEALTH REFERRALS PFS REFERRAL NEEDED?NO CLERGY REFERRAL NEEDED?NO PUBLIC HEALTH REFERRAL NEEDED?NO WAS THE PROVIDER NOTIFIED OF ANY PERTINENT INFO?NO HAS THE PATIENT BEEN EDUCATED REGARDING HIS/HER PLAN OF CARE?YES HAS THE PATIENT BEEN EDUCATED REGARDING PAIN, THE RISK FOR PAIN, THE IMPORTANCE OF EFFECTIVE PAIN MANAGEMENT, AND THE PAIN ASSESSMENT PROCESS?YES PATIENT: ____. ADVANCE DIRECTIVES DO YOU HAVE A COPY WITH YOU?NO DO YOU HAVE A COPY WITH YOU?NO DO YOU HAVE A COPY WITH YOU?NO NAME OF POA? CARLOS [phone] HEALTH CARE PROXY?YES LIVING WILL?YES WOULD YOU LIKE MORE INFORMATION?NO HAVE YOU HAD A COPY OF ANY ADVANCED DIRECTIVE (LISTED ABOVE) ON A PREVIOUS MEDICAL RECORDS AT [facility]?NO POWER OF FORMULA CLERK?YES NAME OF HCP ROBERT ARAUJO (SON)PHONE # [phone] DO YOU HAVE A DNR?NO REVIEW OF SYSTEMS REVIEWED BY: PROVIDER: . CONSTITUTIONAL: ANY CHANGE IN YOUR MEDICAL CONDITION? NO . CHILLS NO . FEVER NO . INFECTION: DO YOU HAVE NEW INFECTIONS? NO . DO YOU HAVE HISTORY OF MRSA? NO . MUSCULOSKELETAL: ANY NEW PATTERNS OF PAIN OR NUMBNESS? NO . GASTROENTEROLOGY: ANY NEW CHANGE IN BOWEL CONTROL? NO . GENITOURINARY: ANY NEW CHANGE IN BLADDER CONTROL? NO . IS THERE A CHANCE YOU COULD BE ? NO . HEMATOLOGY/LYMPH: DO YOU TAKE ANY BLOOD THINNERS? (FOR EXAMPLE- COUMADIN, PLAVIX, AGGRENOX, PLATEL, PRADAXA, OR XARELTO) YES, PLAVIX . WHEN WAS YOUR LAST DOSE? DATE: TIME: 12-19-16 0800 . NEUROLOGY: HAVE YOU FALLEN IN THE PAST 6 MONTHS? NO . ANY NEW EXTREMITY NUMBNESS OR WEAKNESS? NO . CARDIOLOGY: DO YOU HAVE A PACEMAKER OR DEFIBRILLATOR? NO . RESPIRATORY: HAVE YOU BEEN SICK IN THE PAST WEEK? NO . FEVER NO . FLU LIKE SYMPTOMS? NO . COUGH NO . INTEGUMENTARY: DO YOU HAVE ANY RASHES OR OPEN SORES? NO . ALLERGIC/IMMUNO: ARE YOU ALLERGIC TO SHELLFISH OR IV DYE? NO . ANY NEW ALLERGIES? NO . PSYCHIATRIC: DO YOU HAVE THOUGHTS OF HURTING YOURSELF OR SOMEONE ELSE? NO . ARE YOU ABUSED, NEGLECTED, OR IN AN UNSAFE ENVIRONMENT? NO . ENDOCRINOLOGY: ARE YOU DIABETIC? YES . OTHER: DO YOU NEED ANY PRESCRIPTIONS? NO . IF YES, PLEASE LIST: ____ . ANY NEW PROBLEMS WITH YOUR MEDICATIONS? NO . WHEN DID YOU LAST EAT? 12-27-16 10:30 PM . WHEN DID YOU LAST DRINK? 12-27-16 11 PM . WHAT DID YOU LAST DRINK? WATER . NAME OF PERSON DRIVING YOU HOME? MARY . DO YOU HAVE ANY OTHER QUESTIONS OR CONCERNS NO . VITAL SIGNS WT 198.8 LBS, HT 5 FT 6 IN, BMI 32.08 INDEX, BP 135/78 MM HG, HR 56 /MIN, RR 18 /MIN, TEMP 97.5 F, OXYGEN SAT % 96, NA INITIALS MP [id number], REVIEWED BY: CM. ASSESSMENTS INTERVERTEBRAL DISC DISORDER WITH RADICULOPATHY OF LUMBOSACRAL REGION - M51.17 (PRIMARY) PROCEDURES PN CAUDAL EPIDURALS PRE PROCEDURE DIAGNOSIS LUMBAR POST LAMINECTOMY PAIN SYNDROME POST PROCEDURE DIAGNOSIS LUMBAR POST LAMINECTOMY PAIN SYNDROME PROCEDURE CAUDAL EPIDURAL STEROID INJECTION UNDER FLUOROSCOPIC GUIDANCE SURGEON DR. LAUREEN TREVIZO ROSIN BARREL FILLER NONE ANESTHESIA LOCAL PRE PROCEDURE NOTE THE PATIENT HAS HISTORY OF CHRONIC LOW BACK PAIN. I EVALUATE THE PATIENT AND REVIEWED THE CHART. I WENT OVER THE RISKS, ALTERNATIVES, AND BENEFITS ASSOCIATED WITH THIS PROCEDURE. THE PATIENT WOULD LIKE TO PROCEED AND GIVE CONSENT TO PERFORMED THE PROCEDURE. THE PATIENT DENIES UNEXPLAINABLE WEIGHT LOSS, FEVER, CHILLS, OR NEW CHANGES IN URINARY OR BOWEL CONTROL. DESCRIPTION OF PROCEDURE THE PATIENT WAS BROUGHT TO THE PROCEDURE ROOM AND PLACED IN THE PRONE POSITION. THE LUMBOSACRAL AREA WAS CLEANED WITH BETADINE SOLUTION AND DRAPED ASEPTICALLY. THE PROCEDURE WAS DONE UNDER STERILE CONDITIONS. I CHECKED LATERALITY AND THE LEVEL WHERE THE PROCEDURE WAS GOING TO BE PERFORMED WITH THE PATIENT AND THE SUPPORTING STAFF AT THE MOMENT OF THE TIME OUT IN THE PROCEDURE ROOM. UNDER FLUOROSCOPIC GUIDANCE, THE TARGET POINT WAS SELECTED AT THE EPIDURAL SPACE BELOW THE SACROCOCCYGEAL LIGAMENT. LIDOCAINE 0.5% WAS USE TO NUMB THE SKIN AND THE SUBCUTANEOUS TISSUE BELOW IT. AN EPIDURAL TUOHY NEEDLE, 17-GAUGE, WAS ADVANCED UNDER FLUOROSCOPIC GUIDANCE AND FOLLOWING PATIENT FEEDBACK UNTIL THE EPIDURAL SPACE WAS REACHED 6 CM DEEP INTO THE SKIN BY THE LOSS OF RESISTANCE TECHNIQUE. ISOVUE M DYE 30%, 0.25 ML, WAS INJECTED SHOWING ADEQUATE SPREAD OF THE DYE. THEN, A SOLUTION OF 6 ML OF NORMAL SALINE WITH DEPO-MEDROL 60 MG WAS INJECTED SLOWLY FOLLOWING THE PATIENT FEEDBACK. THERE WAS NO EVIDENCE OF BLOOD, PARESTHESIA OR CEREBROSPINAL FLUID DURING THE PROCEDURE. THE PATIENT WAS SENT TO THE RECOVERY ROOM. THE PATIENT WAS MOVING THE EXTREMITIES AND DOING WELL. THERE WAS NO COMPLICATION DURING THE PROCEDURE. FLUOROSCOPY TIME WAS 15 SECONDS POST PROCEDURE NOTE THE PATIENT WILL BE SEEN IN A FOLLOW UP IN THE NEXT FEW WEEKS. INSTRUCTIONS WERE GIVEN, QUESTIONS WERE ANSWERED, AND THE PATIENT EXPRESSED UNDERSTANDING AND AGREES WITH THE PLAN. I, PAUL CRONIN, DOCUMENTED THE ABOVE INFORMATION ACTING A SCRIBE FOR DR. TREVIZO. I HAVE REVIEWED THE ABOVE DOCUMENT, WRITTEN BY PAUL HERNANDEZ AND I VERIFY THAT IT IS ACCURATE. DIAGNOSTIC IMAGING [facility] FLUORO GUIDE SPINE INJECTION (PAIN)[id number] PROCEDURE CODES 63387 LUMBAR/SACRAL W/ IMAGING 6045F RADXPS IN END HPMD3GILCE PXD DISPOSITION & COMMUNICATION FOLLOW UP 3 WEEKS ELECTRONICALLY SIGNED BY LAUREEN TREVIZO MD ON 01/02/2017 AT 12:49 PM EDT DISCLAIMER : THIS IS A VISIT SUMMARY EXTRACTED FROM THE [employer] CHART. IT IS NOT A COPY OF THE [employer] PROGRESS NOTE. MTDD
== END ==
LOC: M PAIN 08:30
PROVIDERS: ATTEND Anesthesiology
DX: G89.29 Other chronic pain (principal); M51.17 Intervertebral disc disorders with radiculopathy, lumbosacral region; I10 Essential (primary) hypertension; E11.9 Type 2 diabetes mellitus without complications; I25.2 Old myocardial infarction; E03.9 Hypothyroidism, unspecified; Z88.8 Allergy status to other drugs, medicaments and biological substances; Z79.01 Long term (current) use of anticoagulants; Z79.84 Long term (current) use of oral hypoglycemic drugs; Z79.899 Other long term (current) drug therapy; Z87.891 Personal history of nicotine dependence
CPT/HCPCS: 62323; G0463; J1030; Q9967

== ENCOUNTER → 2017-01-10 | Outpatient (CLI) | payer MEDICARE, OTHER ==
--- NOTE | 2017-02-02 00:53 | ECWPNPC ---
PATIENT NAME: ROBERT ARAUJO : 1950 GENDER: MALE VISIT DATE: 01/10/2017 DISCHARGE DATE: 01/10/17 1550 VISIT LOCKED DATE TIME: PHYSICIAN: STEPH LOUIS RESOURCE: STEPH LOUIS REASON FOR APPOINTMENT 1. POST CAUDAL EP HISTORY OF PRESENT ILLNESS HISTORY OF PRESENT ILLNESS: PAIN THE PATIENT DESCRIBES THE PAIN... FALL RISK SCREENING: SCREENING :NO FALLS IN THE PAST YEAR TODAY'S VISIT: NOTES: PT IS S/P CAUDAL EPIDURAL COMPLETED ON 12/28/16. IS REPORTING A SIGNIFICANT DECREASE IN BACK AND LEG PAIN. REPORTS NO ADVRESE EFFECTS FROM INJECTION TREATMENT. CURRENT MEDICATIONS TAKING METFORMIN HCL 500 MG TABLET 1 TABLET WITH MEALS ORALLY DAILY TAKING IRON (FERROUS GLUCONATE) 256 (28 FE) MG TABLET ORALLY TAKES 65 MG DAILY AT SUPPERTIME TAKING METOPROLOL TARTRATE 50 MG TABLET 1 TABLET WITH FOOD ORALLY DAILY TAKING VENLAFAXINE HCL ER 150 MG CAPSULE EXTENDED RELEASE 24 HOUR 1 CAPSULE WITH FOOD ORALLY AT BEDTIME TAKING NITROGLYCERIN 0.4 MG TABLET SUBLINGUAL SUBLINGUAL NEEDED TAKING MELOXICAM 7.5 MG TABLET (PRIOR AUTH: RX REF#:[id number]) ORAL DAILY TAKING NITROGLYCERIN 0.4 MG/HR PATCH 24 HOUR (PRIOR AUTH: RX REF#:[id number]) TRANSDERMAL DAILY TAKING GABAPENTIN 300 MG CAPSULE (PRIOR AUTH: RX REF#:[id number]) ORAL DAILY (MON AND MONDAY) TAKING ATORVASTATIN CALCIUM 20 MG TABLET (PRIOR AUTH: RX REF#:[id number]) ORAL DAILY TAKING PANTOPRAZOLE SODIUM 40 MG TABLET DELAYED RELEASE (PRIOR AUTH: RX REF#:[id number]) ORAL DAILY TAKING LISINOPRIL 20 MG TABLET (PRIOR AUTH: RX REF#:[id number]) ORAL 2 IF NEEDED IN AM TAKING RANEXA 500 MG TABLET EXTENDED RELEASE 12 HOUR (PRIOR AUTH: RX REF#:[id number]) ORAL BID TAKING TOPROL XL 50 MG TABLET EXTENDED RELEASE 24 HOUR (PRIOR AUTH: RX REF#:[id number]) ORAL TAKING CLOPIDOGREL BISULFATE 75 MG TABLET (PRIOR AUTH: RX REF#:[id number]) ORAL DAILY TAKING ESOMEPRAZOLE MAGNESIUM 40 MG CAPSULE DELAYED RELEASE (PRIOR AUTH: RX REF#:[id number]) ORAL TAKING AMLODIPINE BESYLATE 5 MG TABLET (PRIOR AUTH: RX REF#:[id number]) ORAL DAILY TAKING ISOSORBIDE MONONITRATE ER 30 MG TABLET EXTENDED RELEASE 24 HOUR (PRIOR AUTH: RX REF#:[id number]) ORAL DAILY TAKING SYNTHROID 100 MCG TABLET (PRIOR AUTH: RX REF#:[id number]) ORAL DAILY TAKING VENLAFAXINE HCL ER 37.5 MG CAPSULE EXTENDED RELEASE 24 HOUR (PRIOR AUTH: RX REF#:[id number]) ORAL DAILY MEDICATION LIST REVIEWED AND RECONCILED WITH THE PATIENT PAST MEDICAL HISTORY HTN DM MS WITH HX STENT PLACEMENT ATYPICAL CHEST PAIN HYPOTHYROIDISM LOW BACK PAIN WITH LEFT SIDED RADICULAR PAIN FOLLOWING LUMBAR SURGERY ALLERGIES KEY-SELTZER: CHEST PAIN CHLORPHENIRAMINE MALEATE: UNSURE PHENYLTOLOXAMINE-ACETAMINOPHEN: UNSURE SURGICAL HISTORY L4-L5 DISC FUSION 1993 DISC REMOVAL LOW BACK 2009 CHOLECYSTECTOMY 1988 RIGHT SIDED HERNIA REPAIR 1970 LEFT SIDED HERNIA REPAIR 1980S HOSPITALIZATION/MAJOR DIAGNOSTIC PROCEDURE SEE ABOVE HAD CARDIAC CATH 1 WEEK AGO (NOV 17) WITH RESULTS NEGATIVE REVIEW OF SYSTEMS REVIEWED BY: PROVIDER: STEPH [place] . CONSTITUTIONAL: ANY CHANGE IN YOUR MEDICAL CONDITION? NO . CHILLS NO . FEVER NO . INFECTION: DO YOU HAVE NEW INFECTIONS? NO . DO YOU HAVE HISTORY OF MRSA? NO . MUSCULOSKELETAL: ANY NEW PATTERNS OF PAIN OR NUMBNESS? NO . GASTROENTEROLOGY: ANY NEW CHANGE IN BOWEL CONTROL? NO . GENITOURINARY: ANY NEW CHANGE IN BLADDER CONTROL? NO . IS THERE A CHANCE YOU COULD BE ? NO . HEMATOLOGY/LYMPH: DO YOU TAKE ANY BLOOD THINNERS? (FOR EXAMPLE- COUMADIN, PLAVIX, AGGRENOX, PLATEL, PRADAXA, OR XARELTO) PLAVIX . WHEN WAS YOUR LAST DOSE? DATE: TIME: . NEUROLOGY: HAVE YOU FALLEN IN THE PAST 6 MONTHS? NO . ANY NEW EXTREMITY NUMBNESS OR WEAKNESS? NO . CARDIOLOGY: DO YOU HAVE A PACEMAKER OR DEFIBRILLATOR? NO . RESPIRATORY: HAVE YOU BEEN SICK IN THE PAST WEEK? NO . FEVER NO . FLU LIKE SYMPTOMS? NO . COUGH NO . INTEGUMENTARY: DO YOU HAVE ANY RASHES OR OPEN SORES? NO . ALLERGIC/IMMUNO: ARE YOU ALLERGIC TO SHELLFISH OR IV DYE? NO . ANY NEW ALLERGIES? NO . PSYCHIATRIC: DO YOU HAVE THOUGHTS OF HURTING YOURSELF OR SOMEONE ELSE? NO . ARE YOU ABUSED, NEGLECTED, OR IN AN UNSAFE ENVIRONMENT? NO . ENDOCRINOLOGY: ARE YOU DIABETIC? YES . OTHER: DO YOU NEED ANY PRESCRIPTIONS? NO . IF YES, PLEASE LIST: ____ . ANY NEW PROBLEMS WITH YOUR MEDICATIONS? NO . WHEN DID YOU LAST EAT? ____ . WHEN DID YOU LAST DRINK? ____ . WHAT DID YOU LAST DRINK? ____ . NAME OF PERSON DRIVING YOU HOME? ____ . DO YOU HAVE ANY OTHER QUESTIONS OR CONCERNS WOULD LIKE TO KNOW MRI RESULTS (PAPERS ATTACHED) . VITAL SIGNS WT 197.2 LBS, HT 5 FT 6 IN, BMI 31.83 INDEX, BP 153/84 MM HG, HR 98 /MIN, RR 18 /MIN, TEMP 98.6 F, OXYGEN SAT % 95%, NA INITIALS SC 14:37, REVIEWED BY: NL. EXAMINATION GENERAL EXAMINATION: PSYCHALERT , ORIENTED X 3 , APPROPRIATE MOOD AND AFFECT . LUNGS:CLEAR TO AUSCULTATION BILATERALLY. MUSCULOSKELETAL:POINT TENDERNESS OVER LUMBAR SPINOUS PROCESSES. DIAGNOSTIC TESTS REVIEWEDMRI OF LUMBAR SPINE COMPLETED ON 01/02/17. THERE IS MODERATE TO SEVERE GEGENERATIVE DISC DISEASE AT L3-4 AND L5-S1. . THERE IS MILD TO SEVERE LEFT CENTRAL DISC EXTRUSION.WHERE IT EXHIBITS TO SUPERIOR AND INFERIOR MIGRATION. THIS IS PRODUCING SEVERE STENOSIS ONTHE LEFT LATERAL RECESS. SCAR TISSUE CAN NOT BE EXCLUDED. THERE IS RIGHT FACET ARTHROPATHYTHERE IS MILD RIGHT SUBARTICULAR DISC PROTRUSION AT L4-5. THERE IS MILD POSTERIOR RIGHT DISC EXTRUSION AT L5-S1. THERE IS INFERIOR MIGRATION . 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 TREATMENT POSTLAMINECTOMY SYNDROME, NOT ELSEWHERE CLASSIFIED STOP MELOXICAM TABLET, 7.5 MG, (PRIOR AUTH: RX REF#:[id number]), ORAL, DAILY STOP GABAPENTIN CAPSULE, 300 MG, (PRIOR AUTH: RX REF#:[id number]), ORAL, DAILY (MON AND MONDAY) STOP ESOMEPRAZOLE MAGNESIUM CAPSULE DELAYED RELEASE, 40 MG, (PRIOR AUTH: RX REF#:[id number]), ORAL START NORCO TABLET, 5-325 MG, 1 TABLET NEEDED, ORALLY, TAKE 1 DAILY IF NEEDED FOR PAIN MDD=1, 30 DAY(S), 30, REFILLS 0 NOTES: NARCOTIC AGREEMENT TODAY. CALL IF NEED TO DO BACK INJECTION BEFORE NEXT VISIT. PROCEDURE CODES FA211 ESTABILISHED PATIENT [facility] CHARGE DISPOSITION & COMMUNICATION FOLLOW UP CANCEL 01/27 - February (REASON: BACK PAIN) ELECTRONICALLY SIGNED BY RANJEET GUIDO ON 02/01/2017 AT 07:05 PM EDT DISCLAIMER : THIS IS A VISIT SUMMARY EXTRACTED FROM THE [employer] CHART. IT IS NOT A COPY OF THE [employer] PROGRESS NOTE. LORRIE
== END ==
LOC: M PAIN 14:15
PROVIDERS: ATTEND Nurse Practitioner Family
DX: G89.29 Other chronic pain (principal); M96.1 Postlaminectomy syndrome, not elsewhere classified; M51.16 Intervertebral disc disorders with radiculopathy, lumbar region; I10 Essential (primary) hypertension; E11.9 Type 2 diabetes mellitus without complications; E03.9 Hypothyroidism, unspecified; Z98.1 Arthrodesis status; Z88.8 Allergy status to other drugs, medicaments and biological substances; Z79.84 Long term (current) use of oral hypoglycemic drugs; Z79.899 Other long term (current) drug therapy; I25.2 Old myocardial infarction; Z95.5 Presence of coronary angioplasty implant and graft

== ENCOUNTER → 2017-02-13 | Outpatient (CLI) | payer MEDICARE, OTHER ==
--- NOTE | 2017-03-02 01:52 | ECWPNPC ---
PATIENT NAME: ROBERT ARAUJO : 1950 GENDER: MALE VISIT DATE: 02/13/2017 DISCHARGE DATE: 02/13/17 1445 VISIT LOCKED DATE TIME: PHYSICIAN: STEPH LOUIS RESOURCE: STEPH LOUIS REASON FOR APPOINTMENT 1. BACK HISTORY OF PRESENT ILLNESS HISTORY OF PRESENT ILLNESS: PAIN THE PATIENT DESCRIBES THE PAIN... FALL RISK SCREENING: SCREENING :NO FALLS IN THE PAST YEAR TODAY'S VISIT: NOTES: RATES PAIN TODAY 8/10. DESCRIBES PAIN CONSTANT, ACHING TENDER AND SORE. PAIN CENTERED AT LOW BACK AND PAIN RADIATES UP THE SPINE. HAS USED PAIN MEDS SPARINGLY AND THIS HAS BEEN EFFECTIVE. HAS ARTHRITIS IN KNEES AND WAS INJECTED IN LEFT KNEE - NO IMPROVEMENT NOTED.. CURRENT MEDICATIONS TAKING METFORMIN HCL 500 MG TABLET 1 TABLET WITH MEALS ORALLY DAILY TAKING IRON (FERROUS GLUCONATE) 256 (28 FE) MG TABLET ORALLY TAKES 65 MG DAILY AT SUPPERTIME TAKING METOPROLOL TARTRATE 50 MG TABLET 1 TABLET WITH FOOD ORALLY DAILY TAKING VENLAFAXINE HCL ER 150 MG CAPSULE EXTENDED RELEASE 24 HOUR 1 CAPSULE WITH FOOD ORALLY AT BEDTIME TAKING NITROGLYCERIN 0.4 MG TABLET SUBLINGUAL SUBLINGUAL NEEDED TAKING NITROGLYCERIN 0.4 MG/HR PATCH 24 HOUR (PRIOR AUTH: RX REF#:[id number]) TRANSDERMAL DAILY TAKING ATORVASTATIN CALCIUM 20 MG TABLET (PRIOR AUTH: RX REF#:[id number]) ORAL DAILY TAKING PANTOPRAZOLE SODIUM 40 MG TABLET DELAYED RELEASE (PRIOR AUTH: RX REF#:[id number]) ORAL DAILY TAKING LISINOPRIL 20 MG TABLET (PRIOR AUTH: RX REF#:[id number]) ORAL 2 IF NEEDED IN AM TAKING TOPROL XL 50 MG TABLET EXTENDED RELEASE 24 HOUR (PRIOR AUTH: RX REF#:[id number]) ORAL TAKING CLOPIDOGREL BISULFATE 75 MG TABLET (PRIOR AUTH: RX REF#:[id number]) ORAL DAILY TAKING AMLODIPINE BESYLATE 5 MG TABLET (PRIOR AUTH: RX REF#:[id number]) ORAL DAILY TAKING ISOSORBIDE MONONITRATE ER 30 MG TABLET EXTENDED RELEASE 24 HOUR (PRIOR AUTH: RX REF#:[id number]) ORAL DAILY TAKING SYNTHROID 100 MCG TABLET (PRIOR AUTH: RX REF#:[id number]) ORAL DAILY TAKING VENLAFAXINE HCL ER 37.5 MG CAPSULE EXTENDED RELEASE 24 HOUR (PRIOR AUTH: RX REF#:[id number]) ORAL DAILY TAKING NORCO 5-325 MG TABLET 1 TABLET NEEDED ORALLY TAKE 1 DAILY IF NEEDED FOR PAIN MDD=1 NOT-TAKING RANEXA 500 MG TABLET EXTENDED RELEASE 12 HOUR (PRIOR AUTH: RX REF#:[id number]) ORAL BID, NOTES: STOPPED JANUARY 02 MEDICATION LIST REVIEWED AND RECONCILED WITH THE PATIENT PAST MEDICAL HISTORY HTN DM TX WITH HX STENT PLACEMENT ATYPICAL CHEST PAIN HYPOTHYROIDISM LOW BACK PAIN WITH LEFT SIDED RADICULAR PAIN FOLLOWING LUMBAR SURGERY ALLERGIES KEY-SELTZER: CHEST PAIN CHLORPHENIRAMINE MALEATE: UNSURE PHENYLTOLOXAMINE-ACETAMINOPHEN: UNSURE SURGICAL HISTORY L4-L5 DISC FUSION 1993 DISC REMOVAL LOW BACK 2009 CHOLECYSTECTOMY 1988 RIGHT SIDED HERNIA REPAIR 1970 LEFT SIDED HERNIA REPAIR SOCIAL HISTORY GENERAL: TOBACCO USE ARE YOU A:NONSMOKER QUIT SMOKING YEARS AGO ALCOHOL SCREENING DID YOU HAVE A DRINK CONTAINING ALCOHOL IN THE PAST YEAR?YES POINTS1 INTERPRETATIONNEGATIVE HOW OFTEN DID YOU HAVE A DRINK CONTAINING ALCOHOL IN THE PAST YEAR?MONTHLY OR LESS (1 POINT) CAFFEINE CAFFEINE USE?YES DIET: DIABETIC. EXERCISE: DAILY, WALKS, OUTDOORS PERSON, KEEPS BUSY WHEN HE CAN HEART RATE CAN DROP DOWN TO 50S AND HE WILL SLEEP ALL DAY (MD SAYS PROBLEM WITH BLOOD FLOW).. MARITAL STATUS: . MORMON [id number] JEHOVAH'S WITNESS NO RELIGION BELIEFS THAT WOULD IMPACT HEALTH CARE. 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YES PATIENT: ____. ADVANCE DIRECTIVES HEALTH CARE PROXY?YES NAME OF HCP ROBERT ARAUJO (SON)PHONE # [phone] DO YOU HAVE A COPY WITH YOU?NO DO YOU HAVE A DNR?NO WOULD YOU LIKE MORE INFORMATION?NO LIVING WILL?YES DO YOU HAVE A COPY WITH YOU?NO POWER OF MEAT CUTTER APPRENTICE?YES NAME OF MANUEL? CARLOS [phone] DO YOU HAVE A COPY WITH YOU?NO HAVE YOU HAD A COPY OF ANY ADVANCED DIRECTIVE (LISTED ABOVE) ON A PREVIOUS MEDICAL RECORDS AT [facility]?NO HOSPITALIZATION/MAJOR DIAGNOSTIC PROCEDURE SEE ABOVE HAD CARDIAC CATH 1 WEEK AGO (NOV 17) WITH RESULTS NEGATIVE REVIEW OF SYSTEMS REVIEWED BY: PROVIDER: . CONSTITUTIONAL: ANY CHANGE IN YOUR MEDICAL CONDITION? NO . CHILLS NO . FEVER NO . INFECTION: DO YOU HAVE NEW INFECTIONS? NO . DO YOU HAVE HISTORY OF MRSA? NO . MUSCULOSKELETAL: ANY NEW PATTERNS OF PAIN OR NUMBNESS? NO . GASTROENTEROLOGY: ANY NEW CHANGE IN BOWEL CONTROL? NO . GENITOURINARY: ANY NEW CHANGE IN BLADDER CONTROL? NO . IS THERE A CHANCE YOU COULD BE ? NO . HEMATOLOGY/LYMPH: DO YOU TAKE ANY BLOOD THINNERS? (FOR EXAMPLE- COUMADIN, PLAVIX, AGGRENOX, PLATEL, PRADAXA, OR XARELTO) YES . WHEN WAS YOUR LAST DOSE? DATE: TIME: PLAVIX ONLY NOW . NEUROLOGY: HAVE YOU FALLEN IN THE PAST 6 MONTHS? NO . ANY NEW EXTREMITY NUMBNESS OR WEAKNESS? NO . CARDIOLOGY: DO YOU HAVE A PACEMAKER OR DEFIBRILLATOR? NO . CHEST PAIN SOME DISCOMFORT BUT NOT INTENSE. . RESPIRATORY: HAVE YOU BEEN SICK IN THE PAST WEEK? NO . FEVER NO . FLU LIKE SYMPTOMS? NO . COUGH NO . INTEGUMENTARY: DO YOU HAVE ANY RASHES OR OPEN SORES? NO . ALLERGIC/IMMUNO: ARE YOU ALLERGIC TO SHELLFISH OR IV DYE? NO . ANY NEW ALLERGIES? NO . PSYCHIATRIC: DO YOU HAVE THOUGHTS OF HURTING YOURSELF OR SOMEONE ELSE? NO . ARE YOU ABUSED, NEGLECTED, OR IN AN UNSAFE ENVIRONMENT? NO . ENDOCRINOLOGY: ARE YOU DIABETIC? YES . OTHER: DO YOU NEED ANY PRESCRIPTIONS? NO . IF YES, PLEASE LIST: ____ . ANY NEW PROBLEMS WITH YOUR MEDICATIONS? NO . WHEN DID YOU LAST EAT? ____ . WHEN DID YOU LAST DRINK? ____ . WHAT DID YOU LAST DRINK? ____ . NAME OF PERSON DRIVING YOU HOME? ____ . DO YOU HAVE ANY OTHER QUESTIONS OR CONCERNS NO . VITAL SIGNS WT 197.8 LBS, HT 5 FT 6 IN, BMI 31.92 INDEX, BP 171/79 MM HG, REPEAT BP 148/80 MANUAL, HR 93 /MIN, RR 18 /MIN, TEMP 97.5 F, OXYGEN SAT % 93%, NA INITIALS TL 1336, REVIEWED BY: NL. 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 OK TO TRY MUSCLE RUB/BIOFREEZE TO LOW BACK.SURGEON (MIKE) IS TALKING ABOUT HAVING A DORSAL COLUMN STIM TRIAL DONE.WILL DISCUSS WITH DR TREVIZO. PROCEDURE CODES FA211 ESTABILISHED PATIENT [facility] CHARGE DISPOSITION & COMMUNICATION FOLLOW UP DR TREVIZO FOR DCS DISCUSSION (REASON: BACK PAIN) ELECTRONICALLY SIGNED BY RANJEET GUIDO ON 02/28/2017 AT 08:47 AM EST DISCLAIMER : THIS IS A VISIT SUMMARY EXTRACTED FROM THE [employer] CHART. IT IS NOT A COPY OF THE [employer] PROGRESS NOTE. LORRIE
== END ==
LOC: M PAIN 13:30
PROVIDERS: ATTEND Nurse Practitioner Family
DX: G89.29 Other chronic pain (principal); M96.1 Postlaminectomy syndrome, not elsewhere classified; M51.16 Intervertebral disc disorders with radiculopathy, lumbar region; I10 Essential (primary) hypertension; E11.9 Type 2 diabetes mellitus without complications; I25.2 Old myocardial infarction; E03.9 Hypothyroidism, unspecified; Z95.5 Presence of coronary angioplasty implant and graft; Z98.1 Arthrodesis status; Z87.891 Personal history of nicotine dependence; Z79.84 Long term (current) use of oral hypoglycemic drugs; Z79.891 Long term (current) use of opiate analgesic; Z79.899 Other long term (current) drug therapy; Z88.8 Allergy status to other drugs, medicaments and biological substances

== ENCOUNTER → 2017-03-10 | Outpatient (CLI) | payer MEDICARE, OTHER ==
--- NOTE | 2017-03-27 23:34 | ECWPNPC ---
PATIENT NAME: ROBERT ARAUJO : 1950 GENDER: MALE VISIT DATE: 03/10/2017 DISCHARGE DATE: 03/10/17 1409 VISIT LOCKED DATE TIME: PHYSICIAN: LAUREEN TREVIZO RESOURCE: LAUREEN TREVIZO REASON FOR APPOINTMENT 1. BACK PAIN HISTORY OF PRESENT ILLNESS HISTORY OF PRESENT ILLNESS: PAIN THE PATIENT DESCRIBES THE PAIN... 66 YEAR OLD MALE PATIENT WITH HISTORY OF CHRONIC LOW BACK PAIN. PATIENT DESCRIBES THE PAIN TENDER AND SORE AND HAVING IT ALL THE TIME WITH A PAIN SCORE OF 6/10. PATIENT RECEIVED A CAUDAL EPIDURAL ON 12/28/16 AND REPORTS SEVERAL WEEKS OF GOOD PAIN RELIEF. PATIENT STATES THAT HIS PAIN NOW GOES DOWN HIS LEGS AND MAKES IT DIFFICULT TO DO EVERYDAY THINGS. MR. ARAUJO STATES THAT IT IS DIFFICULT FOR HIM TO WALK AND HE CAN NOT WALK LONG DISTANCES. PATIENT DENIES UNEXPLAINABLE WEIGHT LOSS, FEVER, CHILLS, NEW CHANGES ON HIS URINARY OR BOWEL CONTROL. FALL RISK SCREENING: SCREENING :NO FALLS IN THE PAST YEAR CURRENT MEDICATIONS TAKING METFORMIN HCL 500 MG TABLET 1 TABLET WITH MEALS ORALLY DAILY TAKING IRON (FERROUS GLUCONATE) 256 (28 FE) MG TABLET ORALLY TAKES 65 MG DAILY AT SUPPERTIME TAKING METOPROLOL TARTRATE 50 MG TABLET 1 TABLET WITH FOOD ORALLY DAILY TAKING VENLAFAXINE HCL ER 150 MG CAPSULE EXTENDED RELEASE 24 HOUR 1 CAPSULE WITH FOOD ORALLY AT BEDTIME TAKING NITROGLYCERIN 0.4 MG TABLET SUBLINGUAL SUBLINGUAL NEEDED TAKING NITROGLYCERIN 0.4 MG/HR PATCH 24 HOUR (PRIOR AUTH: RX REF#:[id number]) TRANSDERMAL DAILY TAKING ATORVASTATIN CALCIUM 20 MG TABLET (PRIOR AUTH: RX REF#:[id number]) ORAL DAILY TAKING PANTOPRAZOLE SODIUM 40 MG TABLET DELAYED RELEASE (PRIOR AUTH: RX REF#:[id number]) ORAL DAILY TAKING LISINOPRIL 20 MG TABLET (PRIOR AUTH: RX REF#:[id number]) ORAL 2 IF NEEDED IN AM TAKING TOPROL XL 50 MG TABLET EXTENDED RELEASE 24 HOUR (PRIOR AUTH: RX REF#:[id number]) ORAL TAKING CLOPIDOGREL BISULFATE 75 MG TABLET (PRIOR AUTH: RX REF#:[id number]) ORAL DAILY TAKING AMLODIPINE BESYLATE 5 MG TABLET (PRIOR AUTH: RX REF#:[id number]) ORAL DAILY TAKING ISOSORBIDE MONONITRATE ER 30 MG TABLET EXTENDED RELEASE 24 HOUR (PRIOR AUTH: RX REF#:[id number]) ORAL DAILY TAKING SYNTHROID 100 MCG TABLET (PRIOR AUTH: RX REF#:[id number]) ORAL DAILY TAKING VENLAFAXINE HCL ER 37.5 MG CAPSULE EXTENDED RELEASE 24 HOUR (PRIOR AUTH: RX REF#:[id number]) ORAL DAILY TAKING NORCO 5-325 MG TABLET 1 TABLET NEEDED ORALLY TAKE 1 DAILY IF NEEDED FOR PAIN MDD=1 DISCONTINUED RANEXA 500 MG TABLET EXTENDED RELEASE 12 HOUR (PRIOR AUTH: RX REF#:[id number]) ORAL BID, NOTES: STOPPED JANUARY 02 MEDICATION LIST REVIEWED AND RECONCILED WITH THE PATIENT PAST MEDICAL HISTORY HTN DM ME WITH HX STENT PLACEMENT ATYPICAL CHEST PAIN HYPOTHYROIDISM LOW BACK PAIN WITH LEFT SIDED RADICULAR PAIN FOLLOWING LUMBAR SURGERY ALLERGIES KEY-SELTZER: CHEST PAIN CHLORPHENIRAMINE MALEATE: UNSURE PHENYLTOLOXAMINE-ACETAMINOPHEN: UNSURE SOCIAL HISTORY GENERAL: TOBACCO USE ARE YOU A:NONSMOKER QUIT SMOKING YEARS AGO ALCOHOL SCREENING DID YOU HAVE A DRINK CONTAINING ALCOHOL IN THE PAST YEAR?YES HOW OFTEN DID YOU HAVE A DRINK CONTAINING ALCOHOL IN THE PAST YEAR?MONTHLY OR LESS (1 POINT) POINTS1 INTERPRETATIONNEGATIVE CAFFEINE CAFFEINE USE?YES DIET: DIABETIC. EXERCISE: DAILY, WALKS, OUTDOORS PERSON, KEEPS BUSY WHEN HE CAN HEART RATE CAN DROP DOWN TO 50S AND HE WILL SLEEP ALL DAY (MD SAYS PROBLEM WITH BLOOD FLOW).. MARITAL STATUS: . CHURCH EUAPLESW75 EPISCOPALIAN NO YAZIDISM BELIEFS THAT WOULD IMPACT HEALTH CARE. LANGUAGE LANGUAGES SPOKEN:KOREAN LEARNING BARRIERS / SPECIAL NEEDS CHANGE FROM LAST VISIT?NO BARRIERS TO LEARNING?NO HEARING IMPAIRED?YES :HEARING AIDES VISION IMPAIRED?YES :CORRECTIVE LENSES COGNITIVELY IMPAIRED?NO READINESS TO LEARN?YES LEARNING PREFERENCES?NO LEARNING CAPABILITIES PRESENT?YES EMOTIONAL BARRIERS?NO SPECIAL DEVICES?NO MEAT PROCESS WORKER NEEDED?NO PAIN CLINIC PFS, CLERGY, PUBLIC HEALTH REFERRALS PFS REFERRAL NEEDED?NO CLERGY REFERRAL NEEDED?NO PUBLIC HEALTH REFERRAL NEEDED?NO WAS THE PROVIDER NOTIFIED OF ANY PERTINENT INFO?NO HAS THE PATIENT BEEN EDUCATED REGARDING HIS/HER PLAN OF CARE?YES HAS THE PATIENT BEEN EDUCATED REGARDING PAIN, THE RISK FOR PAIN, THE IMPORTANCE OF EFFECTIVE PAIN MANAGEMENT, AND THE PAIN ASSESSMENT PROCESS?YES PATIENT: ____. ADVANCE DIRECTIVES HEALTH CARE PROXY?YES NAME OF HCP ROBERT ARAUJO (SON)PHONE # [phone] DO YOU HAVE A COPY WITH YOU?NO DO YOU HAVE A DNR?NO WOULD YOU LIKE MORE INFORMATION?NO LIVING WILL?YES DO YOU HAVE A COPY WITH YOU?NO POWER OF SEARCH AND RESCUE OFFICER?YES NAME OF POGilmar? CARLOS [id number] DO YOU HAVE A COPY WITH YOU?NO HAVE YOU HAD A COPY OF ANY ADVANCED DIRECTIVE (LISTED ABOVE) ON A PREVIOUS MEDICAL RECORDS AT [facility]?NO REVIEW OF SYSTEMS REVIEWED BY: PROVIDER: LAUREEN TREVIZO MD . CONSTITUTIONAL: ANY CHANGE IN YOUR MEDICAL CONDITION? NO . CHILLS NO . FEVER NO . INFECTION: DO YOU HAVE NEW INFECTIONS? NO . DO YOU HAVE HISTORY OF MRSA? NO . MUSCULOSKELETAL: ANY NEW PATTERNS OF PAIN OR NUMBNESS? NO . GASTROENTEROLOGY: ANY NEW CHANGE IN BOWEL CONTROL? NO . GENITOURINARY: ANY NEW CHANGE IN BLADDER CONTROL? NO . IS THERE A CHANCE YOU COULD BE ? NO . HEMATOLOGY/LYMPH: DO YOU TAKE ANY BLOOD THINNERS? (FOR EXAMPLE- COUMADIN, PLAVIX, AGGRENOX, PLATEL, PRADAXA, OR XARELTO) YES, PLAVIX . WHEN WAS YOUR LAST DOSE? DATE: TIME: 03/10/17 0745 . NEUROLOGY: HAVE YOU FALLEN IN THE PAST 6 MONTHS? NO . ANY NEW EXTREMITY NUMBNESS OR WEAKNESS? NO . CARDIOLOGY: DO YOU HAVE A PACEMAKER OR DEFIBRILLATOR? NO . RESPIRATORY: HAVE YOU BEEN SICK IN THE PAST WEEK? NO . FEVER NO . FLU LIKE SYMPTOMS? NO . COUGH NO . INTEGUMENTARY: DO YOU HAVE ANY RASHES OR OPEN SORES? NO . ALLERGIC/IMMUNO: ARE YOU ALLERGIC TO SHELLFISH OR IV DYE? NO . ANY NEW ALLERGIES? NO . PSYCHIATRIC: DO YOU HAVE THOUGHTS OF HURTING YOURSELF OR SOMEONE ELSE? NO . ARE YOU ABUSED, NEGLECTED, OR IN AN UNSAFE ENVIRONMENT? NO . ENDOCRINOLOGY: ARE YOU DIABETIC? YES . OTHER: DO YOU NEED ANY PRESCRIPTIONS? NO . IF YES, PLEASE LIST: ____ . ANY NEW PROBLEMS WITH YOUR MEDICATIONS? NO . WHEN DID YOU LAST EAT? ____ . WHEN DID YOU LAST DRINK? ____ . WHAT DID YOU LAST DRINK? ____ . NAME OF PERSON DRIVING YOU HOME? ____ . DO YOU HAVE ANY OTHER QUESTIONS OR CONCERNS YES, PROCEDURE/OR IMPLANT PLACE & TIME. . VITAL SIGNS WT 199.2 LBS, HT 5 FT 6 IN, BMI 32.15 INDEX, BP 150/82 MM HG, HR 75 /MIN, RR 16 /MIN, TEMP 97.5 F, OXYGEN SAT % 96%, NA INITIALS TL 1203, REVIEWED BY: CM. EXAMINATION : PATIENT IS ALERT O X 3 AND COOPERATIVE. TENDERNESS IN THE LOWER BACK AND PARASPINAL MUSCLE GROUP. MRI DONE ON 10/19/16 OF THE LUMBAR SPINE SHOWS DISC BULGE AT L3-L4. PATIENT LIMPING FROM LEFT LEG. LEFT LEG IS WEAKER THEN THE RIGHT AT EXTENSION AND FLEXION. PAIN IN THE SACROILIAC JOINT AREA. 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 ARAUJO'S PAIN MANAGEMENT CASE. AT THIS TIME THE PATIENT WILL START GABAPENTIN FOR THE NEUROPATHIC PAIN HE IS HAVING. WE DISCUSSED MOVING FORWARD WITH THE DCS TRIAL PATIENT WILL NEED TO SPEAK WITH HIS MATERIALS ENGINEERING TECHNICIAN ABOUT BEING OFF THE PLAVIX AND POSSIBLY USING A LOVENOX BRIDGE DURING THIS TRIAL. PATIENT WILL ALSO BE REFERRED TO ALEX ROBERTSON FOR THE LOWER BACK LEAK HE IS HAVING. DUE TO THE RADICULAR PAIN AND HISTORY OF BACK SURGERY I WOULD LIKE TO PROCEED WITH A CAUDAL EPIDURAL. WE DISCUSSED THE RISKS, BENENFITS, AND ALTNERATIVES OF THE INJECTION AND THE PATIENT WOULD LIKE TO PROCEED AT THIS TIME. INSTRUCTIONS WERE GIVEN, QUESTIONS WERE ANSWERED, PATIENT REPORTS UNDERSTANDING AND AGREES WITH THE PLAN. I, PAUL CRONIN, DOCUMENTED THE ABOVE INFORMATION ACTING A SCRIBE FOR DR. TREVIZO. I HAVE REVIEWED THE ABOVE DOCUMENT, WRITTEN BY PAUL HERNANDEZ AND I VERIFY THAT IT IS ACCURATE. PREVENTIVE MEDICINE REVIEWED PREPROCEDURE CARE WITH PT EXPRESSING UNDERSTANDING OF HOLDING PLAVIX AND METFORMIN. PROCEDURE CODES FA211 ESTABILISHED PATIENT [facility] FACILITY CHARGE R6156 DOC MEDS VERIFIED W/PT OR RE M6521 PAIN ASSESS POS TOOL F/U PLAN DOC DISPOSITION & COMMUNICATION FOLLOW UP CAUDAL/LESI AFTER APPROVAL ELECTRONICALLY SIGNED BY LAUREEN TREVIZO MD ON 03/27/2017 AT 10:51 PM EST DISCLAIMER : THIS IS A VISIT SUMMARY EXTRACTED FROM THE [employer] CHART. IT IS NOT A COPY OF THE [employer] PROGRESS NOTE. LORRIE
== END ==
LOC: M PAIN 11:45
PROVIDERS: ATTEND Anesthesiology
DX: M96.1 Postlaminectomy syndrome, not elsewhere classified (principal); M51.16 Intervertebral disc disorders with radiculopathy, lumbar region; M46.1 Sacroiliitis, not elsewhere classified; M54.5 Low back pain; G89.29 Other chronic pain; I10 Essential (primary) hypertension; E11.9 Type 2 diabetes mellitus without complications; E03.9 Hypothyroidism, unspecified; Z79.891 Long term (current) use of opiate analgesic; Z79.899 Other long term (current) drug therapy; Z79.01 Long term (current) use of anticoagulants; Z79.84 Long term (current) use of oral hypoglycemic drugs; Z88.8 Allergy status to other drugs, medicaments and biological substances; Z87.891 Personal history of nicotine dependence; Z95.5 Presence of coronary angioplasty implant and graft

== ENCOUNTER → 2017-03-22 | Outpatient (CLI) | payer MEDICARE, OTHER ==
[~2017-03-22] MED LIST changes: +oxyCODONE 5MG TAB As Ordered ONE
--- NOTE | 2017-03-22 21:15 | REP ---
Partial lumbar spine series: Four views History: Injection procedure for pain. 10 seconds of fluoroscopy time is reported. Findings: A sequence of four fluoroscopically obtained last image hold procedural spot radiographs of the lumbar spine document needle position and contrast injection associated with injection procedure. Signed by Augustin Theodore MD 03/23/2017 08:09 A
--- NOTE | 2017-03-30 01:14 | ECWPNPC ---
PATIENT NAME: ROBERT ARAUJO : 1950 GENDER: MALE VISIT DATE: 03/22/2017 DISCHARGE DATE: 03/22/17 1256 VISIT LOCKED DATE TIME: PHYSICIAN: LAUREEN TREVIZO RESOURCE: LAUREEN TREVIZO REASON FOR APPOINTMENT 1. CAUDAL HISTORY OF PRESENT ILLNESS HISTORY OF PRESENT ILLNESS: PAIN THE PATIENT DESCRIBES THE PAIN... FALL RISK SCREENING: SCREENING :NO FALLS IN THE PAST YEAR CURRENT MEDICATIONS TAKING METFORMIN HCL 500 MG TABLET 1 TABLET WITH MEALS ORALLY DAILY, NOTES: 03-21-172099 TAKING IRON (FERROUS GLUCONATE) 256 (28 FE) MG TABLET ORALLY TAKES 65 MG DAILY AT SUPPERTIME, NOTES: 03-21-172099 TAKING METOPROLOL TARTRATE 50 MG TABLET 1 TABLET WITH FOOD ORALLY DAILY, NOTES: 03-22-17 0700 TAKING VENLAFAXINE HCL ER 150 MG CAPSULE EXTENDED RELEASE 24 HOUR 1 CAPSULE WITH FOOD ORALLY AT BEDTIME, NOTES: 03-21-172099 TAKING NITROGLYCERIN 0.4 MG TABLET SUBLINGUAL SUBLINGUAL NEEDED, NOTES: NOT LATELY TAKING NITROGLYCERIN 0.4 MG/HR PATCH 24 HOUR (PRIOR AUTH: RX REF#:[id number]) TRANSDERMAL DAILY, NOTES: PATCH ON TAKING PANTOPRAZOLE SODIUM 40 MG TABLET DELAYED RELEASE (PRIOR AUTH: RX REF#:[id number]) ORAL DAILY, NOTES: 03-22-17 0600 TAKING LISINOPRIL 20 MG TABLET (PRIOR AUTH: RX REF#:[id number]) ORAL 2 IF NEEDED IN AM, NOTES: 03-22-17 0800 TAKING TOPROL XL 50 MG TABLET EXTENDED RELEASE 24 HOUR (PRIOR AUTH: RX REF#:[id number]) ORAL , NOTES: 03-21-172099 TAKING CLOPIDOGREL BISULFATE 75 MG TABLET (PRIOR AUTH: RX REF#:[id number]) ORAL DAILY, NOTES: 03-15-17 TAKING AMLODIPINE BESYLATE 5 MG TABLET (PRIOR AUTH: RX REF#:[id number]) ORAL DAILY, NOTES: 03-22-17 0800 TAKING ISOSORBIDE MONONITRATE ER 30 MG TABLET EXTENDED RELEASE 24 HOUR (PRIOR AUTH: RX REF#:[id number]) ORAL DAILY, NOTES: 03-22-17 0800 TAKING SYNTHROID 100 MCG TABLET (PRIOR AUTH: RX REF#:[id number]) ORAL DAILY, NOTES: 03-22-17 0800 TAKING VENLAFAXINE HCL ER 37.5 MG CAPSULE EXTENDED RELEASE 24 HOUR (PRIOR AUTH: RX REF#:[id number]) ORAL DAILY, NOTES: 03-22-17 0700 TAKING NORCO 5-325 MG TABLET 1 TABLET NEEDED ORALLY TAKE 1 DAILY IF NEEDED FOR PAIN MDD=1, NOTES: 2099 TAKING GABAPENTIN 300 MG CAPSULE 1 CAPSULE BEFORE BEDTIME ORALLY FOR PAIN ONCE A DAY MDD1, NOTES: 03-21-172099 UNKNOWN ATORVASTATIN CALCIUM 20 MG TABLET (PRIOR AUTH: RX REF#:[id number]) ORAL DAILY MEDICATION LIST REVIEWED AND RECONCILED WITH THE PATIENT PAST MEDICAL HISTORY HTN DM ID WITH HX STENT PLACEMENT ATYPICAL CHEST PAIN HYPOTHYROIDISM LOW BACK PAIN WITH LEFT SIDED RADICULAR PAIN FOLLOWING LUMBAR SURGERY ALLERGIES KEY-SELTZER: CHEST PAIN CHLORPHENIRAMINE MALEATE: UNSURE PHENYLTOLOXAMINE-ACETAMINOPHEN: UNSURE REVIEW OF SYSTEMS REVIEWED BY: PROVIDER: . CONSTITUTIONAL: ANY CHANGE IN YOUR MEDICAL CONDITION? NO . CHILLS NO . FEVER NO . INFECTION: DO YOU HAVE NEW INFECTIONS? NO . DO YOU HAVE HISTORY OF MRSA? NO . MUSCULOSKELETAL: ANY NEW PATTERNS OF PAIN OR NUMBNESS? NO . GASTROENTEROLOGY: ANY NEW CHANGE IN BOWEL CONTROL? NO . GENITOURINARY: ANY NEW CHANGE IN BLADDER CONTROL? NO . IS THERE A CHANCE YOU COULD BE ? NO . HEMATOLOGY/LYMPH: DO YOU TAKE ANY BLOOD THINNERS? (FOR EXAMPLE- COUMADIN, PLAVIX, AGGRENOX, PLATEL, PRADAXA, OR XARELTO) NO . WHEN WAS YOUR LAST DOSE? DATE: TIME: . NEUROLOGY: HAVE YOU FALLEN IN THE PAST 6 MONTHS? NO . ANY NEW EXTREMITY NUMBNESS OR WEAKNESS? NO . CARDIOLOGY: DO YOU HAVE A PACEMAKER OR DEFIBRILLATOR? NO . RESPIRATORY: HAVE YOU BEEN SICK IN THE PAST WEEK? NO . FEVER NO . FLU LIKE SYMPTOMS? NO . COUGH NO . INTEGUMENTARY: DO YOU HAVE ANY RASHES OR OPEN SORES? NO . ALLERGIC/IMMUNO: ARE YOU ALLERGIC TO SHELLFISH OR IV DYE? NO . ANY NEW ALLERGIES? NO . PSYCHIATRIC: DO YOU HAVE THOUGHTS OF HURTING YOURSELF OR SOMEONE ELSE? NO . ARE YOU ABUSED, NEGLECTED, OR IN AN UNSAFE ENVIRONMENT? NO . ENDOCRINOLOGY: ARE YOU DIABETIC? NO . OTHER: DO YOU NEED ANY PRESCRIPTIONS? NO . IF YES, PLEASE LIST: ____ . ANY NEW PROBLEMS WITH YOUR MEDICATIONS? NO . WHEN DID YOU LAST EAT? ____ . WHEN DID YOU LAST DRINK? ____ . WHAT DID YOU LAST DRINK? ____ . NAME OF PERSON DRIVING YOU HOME? ____ . DO YOU HAVE ANY OTHER QUESTIONS OR CONCERNS NO . VITAL SIGNS WT 196.4 LBS, HT 66", BMI 31.70 INDEX, BP 131/80 MM HG, HR 75 /MIN, RR 16 /MIN, TEMP 96.5 F, OXYGEN SAT % 98%, NA INITIALS TL 1057. ASSESSMENTS POSTLAMINECTOMY SYNDROME, NOT ELSEWHERE CLASSIFIED - M96.1 (PRIMARY) PROCEDURES PRE PROCEDURE DIAGNOSIS LUMBOSACRAL DISC DISORDER WITH RADICULOPATHY POST PROCEDURE DIAGNOSIS LUMBOSACRAL DISC DISORDER WITH RADICULOPATHY PROCEDURE LUMBAR EPIDURAL STEROID INJECTION UNDER FLUOROSCOPIC GUIDANCE SURGEON DR. LAUREEN TREVIZO ELECTRICAL CALIBRATOR NONE ANESTHESIA LOCAL PRE PROCEDURE NOTE THE PATIENT HAS A HISTORY OF CHRONIC LOW BACK PAIN. I EVALUATE THE PATIENT AND REVIEWED THE CHART. I WENT OVER THE RISKS, ALTERNATIVES, AND BENEFITS ASSOCIATED WITH THIS PROCEDURE. THE PATIENT WOULD LIKE TO PROCEED AND GIVE CONSENT TO PERFORMED THE PROCEDURE. THE PATIENT DENIES UNEXPLAINABLE WEIGHT LOSS, FEVER, CHILLS, OR NEW CHANGES IN URINARY OR BOWEL CONTROL. DESCRIPTION OF PROCEDURE THE PATIENT WAS BROUGHT TO THE PROCEDURE ROOM AND PLACED IN THE PRONE POSITION. THE LUMBOSACRAL AREA WAS CLEANED WITH BETADINE SOLUTION AND DRAPED ASEPTICALLY. THE PROCEDURE WAS DONE UNDER STERILE CONDITIONS. I CHECKED LATERALITY AND THE LEVEL WHERE THE PROCEDURE WAS GOING TO BE PERFORMED WITH THE PATIENT AND THE SUPPORTING STAFF AT THE MOMENT OF THE TIME OUT IN THE PROCEDURE ROOM. UNDER FLUOROSCOPIC GUIDANCE, THE TARGET POINT WAS SELECTED AT THE INTERLAMINAR LEVEL OF L5-S1. LIDOCAINE WAS USED TO NUMB THE SKIN AND THE SUBCUTANEOUS TISSUE BELOW IT. EPIDURAL TUOHY NEEDLE, 17-GAUGE, WAS ADVANCED UNDER FLUOROSCOPIC GUIDANCE AND FOLLOWING PATIENT FEEDBACK UNTIL THE EPIDURAL SPACE WAS REACHED, 7 CM DEEP INTO THE SKIN BY THE LOSS OF RESISTANCE TECHNIQUE. ISOVUE M DYE 30%, 0.25 ML, WAS INJECTED SHOWING ADEQUATE SPREAD OF THE DYE. THEN, A SOLUTION OF 3 ML OF NORMAL SALINE WITH DEPO-MEDROL 60 MG WAS INJECTED SLOWLY FOLLOWING PATIENT FEEDBACK. THERE WAS NO EVIDENCE OF BLOOD, PARESTHESIA OR CEREBROSPINAL FLUID DURING THE PROCEDURE. THE PATIENT WAS SENT TO THE RECOVERY ROOM. THE PATIENT WAS MOVING THE EXTREMITIES AND DOING WELL. THERE WAS NO COMPLICATION DURING THE PROCEDURE. FLUOROSCOPY TIME WAS 10 SECONDS. POST PROCEDURE NOTE THE PATIENT WILL BE SEEN IN A FOLLOW UP IN THE NEXT FEW WEEKS. INSTRUCTIONS WERE GIVEN, QUESTIONS WERE ANSWERED, AND THE PATIENT EXPRESSED UNDERSTANDING AND AGREES WITH THE PLAN. I, PAUL CRONIN, DOCUMENTED THE ABOVE INFORMATION ACTING A SCRIBE FOR DR. TREVIZO. I HAVE REVIEWED THE ABOVE DOCUMENT, WRITTEN BY PAUL HERNANDEZ AND I VERIFY THAT IT IS ACCURATE DIAGNOSTIC IMAGING [facility] FLUORO GUIDE SPINE INJECTION (PAIN)[id number] PROCEDURE CODES 12252 LUMBAR/SACRAL W/ IMAGING 6045F RADXPS IN END [id number] PXD DISPOSITION & COMMUNICATION FOLLOW UP 2 WEEKS ELECTRONICALLY SIGNED BY LAUREEN TREVIZO MD ON 03/29/2017 AT 02:20 PM EST DISCLAIMER : THIS IS A VISIT SUMMARY EXTRACTED FROM THE [employer] CHART. IT IS NOT A COPY OF THE [employer] PROGRESS NOTE. MTDYan
== END ==
LOC: M PAIN 11:15
PROVIDERS: ATTEND Anesthesiology
DX: M96.1 Postlaminectomy syndrome, not elsewhere classified (principal); I10 Essential (primary) hypertension; E11.9 Type 2 diabetes mellitus without complications; E03.9 Hypothyroidism, unspecified; I25.2 Old myocardial infarction; Z79.899 Other long term (current) drug therapy; Z79.84 Long term (current) use of oral hypoglycemic drugs; Z79.891 Long term (current) use of opiate analgesic; Z95.5 Presence of coronary angioplasty implant and graft
CPT/HCPCS: 62323; J1030; Q9967

== ENCOUNTER → 2017-04-19 | Outpatient (CLI) | payer MEDICARE, OTHER | LOC: M PAIN 11:00 | DX: M96.1 Postlaminectomy syndrome, not elsewhere classified (principal); M51.16 Intervertebral disc disorders with radiculopathy, lumbar region; I10 Essential (primary) hypertension; E11.9 Type 2 diabetes mellitus without complications; E03.9 Hypothyroidism, unspecified; I25.2 Old myocardial infarction; Z79.84 Long term (current) use of oral hypoglycemic drugs; Z79.891 Long term (current) use of opiate analgesic; Z79.899 Other long term (current) drug therapy; Z87.891 Personal history of nicotine dependence; Z88.8 Allergy status to other drugs, medicaments and biological substances; Z95.5 Presence of coronary angioplasty implant and graft | CPT/HCPCS: G0463 ==

== ENCOUNTER → 2017-05-25 | Outpatient (CLI) | payer MEDICARE, OTHER | LOC: M PAIN 10:30 | DX: M96.1 Postlaminectomy syndrome, not elsewhere classified (principal); M51.16 Intervertebral disc disorders with radiculopathy, lumbar region; I10 Essential (primary) hypertension; E11.9 Type 2 diabetes mellitus without complications; I25.2 Old myocardial infarction; E03.9 Hypothyroidism, unspecified; Z79.01 Long term (current) use of anticoagulants; Z79.84 Long term (current) use of oral hypoglycemic drugs; Z79.891 Long term (current) use of opiate analgesic; Z79.899 Other long term (current) drug therapy; Z88.8 Allergy status to other drugs, medicaments and biological substances; Z87.891 Personal history of nicotine dependence; Z95.828 Presence of other vascular implants and grafts | CPT/HCPCS: G0463 ==

== ENCOUNTER → 2017-06-12 | Outpatient (CLI) | payer MEDICARE, OTHER ==
[~2017-06-12] MED LIST changes: +ISOVUE-M 300 61% 15ML VIAL (Q9967) As Ordered; -ISOVUE-M 300 61% 15ML VIAL (Q9967) As Ordered ONE; +LIDOCAINE 1% SDV INJ 30 ML VIAL As Ordered; -LIDOCAINE 1% SDV INJ 30 ML VIAL As Ordered ONE; +diazePAM 5 MG TAB As Ordered; -diazePAM 5 MG TAB As Ordered ONE; +methylPREDNISolone SUSP 40 MG/ML (DEPO-medrol) VIAL (J1030) As Ordered; -methylPREDNISolone SUSP 40 MG/ML (DEPO-medrol) VIAL (J1030) As Ordered ONE; +oxyCODONE 5MG TAB As Ordered; -oxyCODONE 5MG TAB As Ordered ONE
== END ==
LOC: M PAIN 11:45
DX: G89.29 Other chronic pain (principal); M51.17 Intervertebral disc disorders with radiculopathy, lumbosacral region; I10 Essential (primary) hypertension; E11.9 Type 2 diabetes mellitus without complications; E03.9 Hypothyroidism, unspecified; I25.2 Old myocardial infarction; Z79.01 Long term (current) use of anticoagulants; Z79.84 Long term (current) use of oral hypoglycemic drugs; Z79.891 Long term (current) use of opiate analgesic; Z88.8 Allergy status to other drugs, medicaments and biological substances; Z95.5 Presence of coronary angioplasty implant and graft; Z87.891 Personal history of nicotine dependence
CPT/HCPCS: J1030

== ENCOUNTER → 2017-06-21 | Outpatient (CLI) | payer MEDICARE, OTHER | LOC: M PAIN 13:30 | DX: M96.1 Postlaminectomy syndrome, not elsewhere classified (principal); M51.16 Intervertebral disc disorders with radiculopathy, lumbar region; M79.1 Myalgia; E11.9 Type 2 diabetes mellitus without complications; I10 Essential (primary) hypertension; I25.2 Old myocardial infarction; E03.9 Hypothyroidism, unspecified; Z79.01 Long term (current) use of anticoagulants; Z79.899 Other long term (current) drug therapy; Z88.8 Allergy status to other drugs, medicaments and biological substances; Z95.5 Presence of coronary angioplasty implant and graft; Z87.891 Personal history of nicotine dependence | CPT/HCPCS: G0463 ==

== ENCOUNTER → 2017-11-10 | Outpatient (CLI) | payer MEDICARE, OTHER | LOC: M PAIN 15:15 | DX: M79.1 Myalgia (principal); M96.1 Postlaminectomy syndrome, not elsewhere classified; M51.16 Intervertebral disc disorders with radiculopathy, lumbar region; M25.561 Pain in right knee; E11.9 Type 2 diabetes mellitus without complications; I10 Essential (primary) hypertension; I25.2 Old myocardial infarction; E03.9 Hypothyroidism, unspecified; Z79.01 Long term (current) use of anticoagulants; Z79.84 Long term (current) use of oral hypoglycemic drugs; Z79.899 Other long term (current) drug therapy; Z88.8 Allergy status to other drugs, medicaments and biological substances; Z96.651 Presence of right artificial knee joint | CPT/HCPCS: G0463 ==

== ENCOUNTER → 2018-06-29 | Outpatient (CLI) | payer MEDICARE, OTHER ==
--- NOTE | 2018-07-03 01:33 | ECWPNPC ---
PATIENT NAME: ROBERT ARAUJO : 1950 GENDER: MALE VISIT DATE: 06/29/2018 DISCHARGE DATE: 06/29/18 1519 VISIT LOCKED DATE TIME: PHYSICIAN: KELLEE POWELL RESOURCE: KELLEE POWELL REASON FOR APPOINTMENT 1. POST PROC PT OF HISTORY OF PRESENT ILLNESS HISTORY OF PRESENT ILLNESS: PAIN THE PATIENT DESCRIBES THE PAINDURING THE LAST MONTH SEVERITY - PAIN SCORE OF7/10 67 YR OLD MALE WITH CHRONIC LOWER BACK PAIN, NOW HAS PAIN IN LEFT SHOULDER AND BASE OF NECK. HE WAS REFERERD FOR MRI CERVICAL SPINE AND NERVE CONDUCTION STUDY. HE IS AWAITNG RESULTS OF MRI AND AND AWAITNG APPT FOR NCS. FALL RISK SCREENING: SCREENING :NO FALLS REPORTED IN THE LAST YEAR CURRENT MEDICATIONS TAKING METFORMIN HCL 500 MG TABLET 1 TABLET WITH MEALS ORALLY BID TAKING METOPROLOL TARTRATE 50 MG TABLET 1 TABLET WITH FOOD ORALLY DAILY TAKING VENLAFAXINE HCL ER 75 MG CAPSULE EXTENDED RELEASE 24 HOUR 1 CAPSULE WITH FOOD ORALLY AT BEDTIME TAKING NITROGLYCERIN 0.4 MG TABLET SUBLINGUAL SUBLINGUAL NEEDED TAKING NITROGLYCERIN 0.4 MG/HR PATCH 24 HOUR (PRIOR AUTH: RX REF#:[id number]) TRANSDERMAL DAILY TAKING PANTOPRAZOLE SODIUM 40 MG TABLET DELAYED RELEASE (PRIOR AUTH: RX REF#:[id number]) ORAL DAILY TAKING LISINOPRIL 20 MG TABLET (PRIOR AUTH: RX REF#:[id number]) ORAL 2 IF NEEDED IN AM TAKING CLOPIDOGREL BISULFATE 75 MG TABLET (PRIOR AUTH: RX REF#:[id number]) ORAL DAILY TAKING AMLODIPINE BESYLATE 5 MG TABLET (PRIOR AUTH: RX REF#:[id number]) ORAL DAILY TAKING ISOSORBIDE MONONITRATE ER 30 MG TABLET EXTENDED RELEASE 24 HOUR (PRIOR AUTH: RX REF#:[id number]) ORAL DAILY TAKING SYNTHROID 100 MCG TABLET (PRIOR AUTH: RX REF#:[id number]) ORAL DAILY TAKING ACETAMINOPHEN EXTRA STRENGTH 500 MG TABLET 2 TABLETS NEEDED ORALLY EVERY 6 HRS TAKING ATORVASTATIN CALCIUM 20 MG TABLET (PRIOR AUTH: RX REF#:[id number]) ORAL DAILY TAKING NORCO 5-325 MG TABLET 1 TABLET NEEDED ORALLY TAKE 1 DAILY IF NEEDED FOR PAIN MDD=1 TAKING TRAMADOL HCL 50 MG TABLET 1 TABLET NEEDED ORALLY EVERY 6 HRS, NOTES: MAX 6 PER DAY TAKING GABAPENTIN 300 MG CAPSULE 1 CAPSULE BEFORE BEDTIME ORALLY FOR PAIN ONCE A DAY MDD1 NOT-TAKING IRON (FERROUS GLUCONATE) 256 (28 FE) MG TABLET ORALLY TAKES 65 MG DAILY AT SUPPERTIME DISCONTINUED VENLAFAXINE HCL ER 37.5 MG CAPSULE EXTENDED RELEASE 24 HOUR (PRIOR AUTH: RX REF#:[id number]) ORAL DAILY IN A.M. MEDICATION LIST REVIEWED AND RECONCILED WITH THE PATIENT PAST MEDICAL HISTORY HTN DM MN WITH HX STENT PLACEMENT ATYPICAL CHEST PAIN HYPOTHYROIDISM LOW BACK PAIN WITH LEFT SIDED RADICULAR PAIN FOLLOWING LUMBAR SURGERY ALLERGIES KEY-SELTZER: CHEST PAIN CHLORPHENIRAMINE MALEATE: UNSURE PHENYLTOLOXAMINE-ACETAMINOPHEN: UNSURE SURGICAL HISTORY L4-L5 DISC FUSION 1993 DISC REMOVAL LOW BACK 2009 CHOLECYSTECTOMY 1988 RIGHT SIDED HERNIA REPAIR 1970 LEFT SIDED HERNIA REPAIR 1980S RIGHT KNEE REPLACEMENT M AY 2017 FAMILY HISTORY FATHER: 95 YRS, DIAGNOSED WITH HEART DISEASE MOTHER: 89 YRS, DIABETES SOCIAL HISTORY GENERAL: TOBACCO USE ARE YOU A:NONSMOKER QUIT SMOKING YEARS AGO LATEX QUESTIONNAIRE LATEX ALLERGY : HAVE YOU EVER DEVELOPED ANY TYPE OF REACTION AFTER HANDLING LATEX PRODUCTS SUCH RUBBER GLOVES, CONDOMS, DIAPHRAGMS, BALLOONS, SOCKS, OR UNDERWEAR?NO LATEX ALLERGY : HAVE YOU EVER DEVELOPED ANY TYPE OF REACTION DURING OR AFTER DENTAL APPOINTMENT, VAGINAL/RECTAL EXAMINATION, SURGICAL PROCEDURE, OR ANY OTHER EXPOSURE?NO LATEX RISK : HAVE YOU EVER HAD ANY DIFFICULTY BREATHING OR HIVES AFTER EATING OR HANDLING ANY FRUITS, OR VEGETABLES; SUCH KIWI, BANANAS, STONE FRUITS, OR CHESTNUTSNO LATEX RISK : DO YOU HAVE A PREVIOUS PERSONAL HISTORY OF MORE THAN NINE SURGERIES, SPINA BIFIDA, OR REPEATED CATHERTIZATIONS? NO LATEX RISK : ARE YOU FREQUENTLY EXPOSED TO LATEX PRODUCTS IN YOUR OCCUPATION?NO DATE ASKED : 06/29/2018 ALCOHOL SCREENING DID YOU HAVE A DRINK CONTAINING ALCOHOL IN THE PAST YEAR?YES HOW OFTEN DID YOU HAVE A DRINK CONTAINING ALCOHOL IN THE PAST YEAR?MONTHLY OR LESS (1 POINT) POINTS1 INTERPRETATIONNEGATIVE RECREATIONAL DRUG USE DRUG USE?NO CAFFEINE CAFFEINE USE?YES HOW OFTEN AND HOW MUCH? 2 CUPS COFFEE/DAY AND AN OCC. SODA ALEVISM [id number] YAZDANISM NO ORTHODOXY BELIEFS THAT WOULD IMPACT HEALTH CARE. LANGUAGE LANGUAGES SPOKEN:SYRI[place] EDUCATION LEVEL OF EDUCATION:FINISHED HIGH SCHOOL LEARNING BARRIERS / SPECIAL NEEDS CHANGE FROM LAST VISIT?NO BARRIERS TO LEARNING?NO HEARING IMPAIRED?YES :HEARING AIDES VISION IMPAIRED?YES :CORRECTIVE LENSES COGNITIVELY IMPAIRED?NO READINESS TO LEARN?YES LEARNING PREFERENCES?NO LEARNING CAPABILITIES PRESENT?YES EMOTIONAL BARRIERS?NO SPECIAL DEVICES?NO DIRECT SALES REPRESENTATIVE NEEDED?NO DOMESTIC VIOLENCE DO YOU FEEL SAFE IN YOUR ENVIRONMENT?YES DIET: DIABETIC. EXERCISE: DAILY, WALKS, OUTDOORS PERSON, KEEPS BUSY WHEN HE CAN HEART RATE CAN DROP DOWN TO 50S AND HE WILL SLEEP ALL DAY (MD SAYS PROBLEM WITH BLOOD FLOW).. MARITAL STATUS: . PAIN CLINIC PFS, CLERGY, PUBLIC HEALTH REFERRALS PFS REFERRAL NEEDED?NO CLERGY REFERRAL NEEDED?NO PUBLIC HEALTH REFERRAL NEEDED?NO WAS THE PROVIDER NOTIFIED OF ANY PERTINENT INFO?NO N/A HAS THE PATIENT BEEN EDUCATED REGARDING HIS/HER PLAN OF CARE?YES HAS THE PATIENT BEEN EDUCATED REGARDING PAIN, THE RISK FOR PAIN, THE IMPORTANCE OF EFFECTIVE PAIN MANAGEMENT, AND THE PAIN ASSESSMENT PROCESS?YES ADVANCE DIRECTIVE ADVANCE DIRECTIVE DISCUSSED WITH PATIENT:YES PT STATES HE HAS HCP AND WILL BRING IN COPY AT NEXT VISIT. STATES COPY IS ON FILE WITH SOLAR MANAGER'S OFFICE. 06/29/18 HAS LIVING WILL, POA , HCP ON FILE WITH HIS SOLAR MANAGER, WILL BRING COPY AT NEXT VISIT. REVEIWED WITH PT 06/29/18 BV. HOSPITALIZATION/MAJOR DIAGNOSTIC PROCEDURE SEE ABOVE HAD CARDIAC CATH 1 WEEK AGO (NOV 17) WITH RESULTS NEGATIVE REVIEW OF SYSTEMS REVIEWED BY: PROVIDER: VICTORIANO . CONSTITUTIONAL: ANY CHANGE IN YOUR MEDICAL CONDITION? NO . CHILLS NO . FEVER NO . INFECTION: DO YOU HAVE NEW INFECTIONS? NO . DO YOU HAVE HISTORY OF MRSA? NO . MUSCULOSKELETAL: ANY NEW PATTERNS OF PAIN OR NUMBNESS? YES, PT STATES HE HAS HAD NEW AND INCREASING PAIN IN LEFT SHOULDER AND ENTIRE LEFT ARM. STATES HE HAS HAD THIS PAIN FOR ABOUT 3 MONTHS. STATES HE WAS REFERRED TO DR. MIRANDA TO HAVE A NERVE CONDUCTION STUDY DONE. . GASTROENTEROLOGY: ANY NEW CHANGE IN BOWEL CONTROL? NO . GENITOURINARY: ANY NEW CHANGE IN BLADDER CONTROL? NO . IS THERE A CHANCE YOU COULD BE ? NO . HEMATOLOGY/LYMPH: DO YOU TAKE ANY BLOOD THINNERS? (FOR EXAMPLE- COUMADIN, PLAVIX, AGGRENOX, PLATEL, PRADAXA, OR XARELTO) YES, PLAVIX . WHEN WAS YOUR LAST DOSE? DATE: TIME: . NEUROLOGY: HAVE YOU FALLEN IN THE PAST 12 MONTHS? NO . ANY NEW EXTREMITY NUMBNESS OR WEAKNESS? NO . CARDIOLOGY: DO YOU HAVE A PACEMAKER OR DEFIBRILLATOR? NO . RESPIRATORY: HAVE YOU BEEN SICK IN THE PAST WEEK? NO . FEVER NO . FLU LIKE SYMPTOMS? NO . COUGH NO . INTEGUMENTARY: DO YOU HAVE ANY RASHES OR OPEN SORES? NO . ALLERGIC/IMMUNO: ARE YOU ALLERGIC TO IV DYE? NO . ANY NEW ALLERGIES? NO . PSYCHIATRIC: DO YOU HAVE THOUGHTS OF HURTING YOURSELF OR SOMEONE ELSE? NO . ARE YOU ABUSED, NEGLECTED, OR IN AN UNSAFE ENVIRONMENT? NO . ENDOCRINOLOGY: ARE YOU DIABETIC? YES, ON MEDICATION . OTHER: DO YOU NEED ANY PRESCRIPTIONS? NO . IF YES, PLEASE LIST: ____ . ANY NEW PROBLEMS WITH YOUR MEDICATIONS? NO . WHEN DID YOU LAST EAT? ____ . WHEN DID YOU LAST DRINK? ____ . WHAT DID YOU LAST DRINK? ____ . NAME OF PERSON DRIVING YOU HOME? ____ . DO YOU HAVE ANY OTHER QUESTIONS OR CONCERNS NO . VITAL SIGNS WT 200.2 LBS, HT 66", BMI 32.31 INDEX, BP 161/78 MM HG, HR 75 /MIN, RR 18 /MIN, TEMP 97.8 F, OXYGEN SAT % 96%, NA INITIALS SC 13:53, REVIEWED BY: BV. EXAMINATION GENERAL EXAMINATION: GENERAL APPEARANCE:NO ACUTE DISTRESS, WELL NOURISHED AND HYDRATED. PSYCHAPPROPRIATE MOOD AND AFFECT . NECK: NO MASSESS OR SCARS, TENDER TO PALAPTION TO LSIDED PARACERVICAL MUSCLES.POSITIVE SPURLING'S LEFT SIDE. LUNGS:CLEAR TO AUSCULTATION BILATERALLY, NO WHEEZES, RHONCHI, RALES. HEART:NO MURMURS, REGULAR RATE AND RHYTHM. ASSESSMENTS INTERVERTEBRAL DISC DISORDER WITH RADICULOPATHY OF LUMBOSACRAL REGION - M51.17 CERVICAL PAIN - M54.2 TREATMENT INTERVERTEBRAL DISC DISORDER WITH RADICULOPATHY OF LUMBOSACRAL REGION CLINICAL NOTES: CONTINUE WITH CURRENT MEDICATION. PLAN: WAIT FOR MRI CERVICAL SPINE AND NCS FOR LEFT ARM. PROCEDURE CODES FA211 ESTABILISHED PATIENT [facility] CHARGE DISPOSITION & COMMUNICATION FOLLOW UP 3 MONTHS ELECTRONICALLY SIGNED BY CRISTOFER WILBURN ON 07/02/2018 AT 08:33 AM EDT DISCLAIMER : THIS IS A VISIT SUMMARY EXTRACTED FROM THE [employer] CHART. IT IS NOT A COPY OF THE [employer] PROGRESS NOTE. LORRIE
== END ==
LOC: M PAIN 13:45
PROVIDERS: ATTEND Nurse Practitioner Family
DX: M51.17 Intervertebral disc disorders with radiculopathy, lumbosacral region (principal); G89.29 Other chronic pain; M54.2 Cervicalgia; I10 Essential (primary) hypertension; E11.9 Type 2 diabetes mellitus without complications; I25.2 Old myocardial infarction; E03.9 Hypothyroidism, unspecified; Z95.5 Presence of coronary angioplasty implant and graft; Z96.651 Presence of right artificial knee joint; Z87.891 Personal history of nicotine dependence; Z88.8 Allergy status to other drugs, medicaments and biological substances; Z79.01 Long term (current) use of anticoagulants; Z79.84 Long term (current) use of oral hypoglycemic drugs; Z79.899 Other long term (current) drug therapy

== ENCOUNTER → 2018-10-23 | Outpatient (CLI) | payer MEDICARE, OTHER ==
--- NOTE | 2018-10-25 00:32 | ECWPNPC ---
PATIENT NAME: ROBERT ARAUJO : 1950 GENDER: MALE VISIT DATE: 10/23/2018 DISCHARGE DATE: 10/23/18 1417 VISIT LOCKED DATE TIME: PHYSICIAN: SHEILA BARRY RESOURCE: SHEILA BARRY REASON FOR APPOINTMENT 1. NEW BODY PART, NECK PAIN HISTORY OF PRESENT ILLNESS HISTORY OF PRESENT ILLNESS: PAIN THE PATIENT DESCRIBES THE PAIN... 67 YEAR OLD MALE IN FOR CHRONIC PAIN FOLLOW UP. HE FEELS HIS PAIN HAS MOSTLY RESOLVED AND CURRENTLY RATES IT AT A 4/10. HE DOES ADMIT TO RECENT BOUTS OF PNEUMONIA, BRONCHITIS, AND THRUSH. FALL RISK SCREENING: SCREENING :NO FALLS REPORTED IN THE LAST YEAR CURRENT MEDICATIONS TAKING METFORMIN HCL 500 MG TABLET 1 TABLET WITH MEALS ORALLY BID TAKING METOPROLOL TARTRATE 50 MG TABLET 1 TABLET WITH FOOD ORALLY DAILY TAKING VENLAFAXINE HCL ER 75 MG CAPSULE EXTENDED RELEASE 24 HOUR 1 CAPSULE WITH FOOD ORALLY AT BEDTIME TAKING NITROGLYCERIN 0.4 MG TABLET SUBLINGUAL SUBLINGUAL NEEDED TAKING NITROGLYCERIN 0.4 MG/HR PATCH 24 HOUR (PRIOR AUTH: RX REF#:[id number]) TRANSDERMAL DAILY TAKING PANTOPRAZOLE SODIUM 40 MG TABLET DELAYED RELEASE (PRIOR AUTH: RX REF#:[id number]) ORAL DAILY TAKING LISINOPRIL 20 MG TABLET (PRIOR AUTH: RX REF#:[id number]) ORAL 2 IF NEEDED IN AM TAKING CLOPIDOGREL BISULFATE 75 MG TABLET (PRIOR AUTH: RX REF#:[id number]) ORAL DAILY TAKING AMLODIPINE BESYLATE 5 MG TABLET (PRIOR AUTH: RX REF#:[id number]) ORAL DAILY TAKING ISOSORBIDE MONONITRATE ER 30 MG TABLET EXTENDED RELEASE 24 HOUR (PRIOR AUTH: RX REF#:[id number]) ORAL DAILY TAKING SYNTHROID 100 MCG TABLET (PRIOR AUTH: RX REF#:[id number]) ORAL DAILY TAKING ACETAMINOPHEN EXTRA STRENGTH 500 MG TABLET 2 TABLETS NEEDED ORALLY EVERY 6 HRS TAKING ATORVASTATIN CALCIUM 20 MG TABLET (PRIOR AUTH: RX REF#:[id number]) ORAL DAILY TAKING NORCO 5-325 MG TABLET 1 TABLET NEEDED ORALLY TAKE 1 DAILY IF NEEDED FOR PAIN MDD=1 TAKING TRAMADOL HCL 50 MG TABLET 1 TABLET NEEDED ORALLY EVERY 6 HRS, NOTES: MAX 6 PER DAY TAKING GABAPENTIN 300 MG CAPSULE 1 CAPSULE BEFORE BEDTIME ORALLY FOR PAIN ONCE A DAY MDD1 TAKING IRON (FERROUS GLUCONATE) 256 (28 FE) MG TABLET ORALLY TAKES 65 MG DAILY AT SUPPERTIME MEDICATION LIST REVIEWED AND RECONCILED WITH THE PATIENT PAST MEDICAL HISTORY HTN DM SC WITH HX STENT PLACEMENT ATYPICAL CHEST PAIN HYPOTHYROIDISM LOW BACK PAIN WITH LEFT SIDED RADICULAR PAIN FOLLOWING LUMBAR SURGERY ALLERGIES KEY-SELTZER: CHEST PAIN CHLORPHENIRAMINE MALEATE: UNSURE PHENYLTOLOXAMINE-ACETAMINOPHEN: UNSURE SURGICAL HISTORY L4-L5 DISC FUSION 1993 DISC REMOVAL LOW BACK 2009 CHOLECYSTECTOMY 1988 RIGHT SIDED HERNIA REPAIR 1970 LEFT SIDED HERNIA REPAIR RIGHT KNEE REPLACEMENT M AY 2017 FAMILY HISTORY FATHER: 95 YRS, DIAGNOSED WITH HEART DISEASE MOTHER: 89 YRS, DIABETES SOCIAL HISTORY GENERAL: TOBACCO USE ARE YOU A:NONSMOKER QUIT SMOKING YEARS AGO EDUCATION LEVEL OF EDUCATION:FINISHED HIGH SCHOOL DIET: DIABETIC. LANGUAGE LANGUAGES SPOKEN:[place] DOMESTIC VIOLENCE DO YOU FEEL SAFE IN YOUR ENVIRONMENT?YES RECREATIONAL DRUG USE DRUG USE?NO EXERCISE: DAILY, WALKS, OUTDOORS PERSON, KEEPS BUSY WHEN HE CAN HEART RATE CAN DROP DOWN TO 50S AND HE WILL SLEEP ALL DAY (MD SAYS PROBLEM WITH BLOOD FLOW).. LEARNING BARRIERS / SPECIAL NEEDS CHANGE FROM LAST VISIT?NO BARRIERS TO LEARNING?NO HEARING IMPAIRED?YES :HEARING AIDES VISION IMPAIRED?YES :CORRECTIVE LENSES COGNITIVELY IMPAIRED?NO READINESS TO LEARN?YES LEARNING PREFERENCES?NO LEARNING CAPABILITIES PRESENT?YES EMOTIONAL BARRIERS?NO SPECIAL DEVICES?NO SAND CASTER NEEDED?NO PAIN CLINIC PFS, CLERGY, PUBLIC HEALTH REFERRALS PFS REFERRAL NEEDED?NO CLERGY REFERRAL NEEDED?NO PUBLIC HEALTH REFERRAL NEEDED?NO WAS THE PROVIDER NOTIFIED OF ANY PERTINENT INFO?NO N/A HAS THE PATIENT BEEN EDUCATED REGARDING HIS/HER PLAN OF CARE?YES HAS THE PATIENT BEEN EDUCATED REGARDING PAIN, THE RISK FOR PAIN, THE IMPORTANCE OF EFFECTIVE PAIN MANAGEMENT, AND THE PAIN ASSESSMENT PROCESS?YES LATEX QUESTIONNAIRE LATEX ALLERGY : HAVE YOU EVER DEVELOPED ANY TYPE OF REACTION AFTER HANDLING LATEX PRODUCTS SUCH RUBBER GLOVES, CONDOMS, DIAPHRAGMS, BALLOONS, SOCKS, OR UNDERWEAR?NO LATEX ALLERGY : HAVE YOU EVER DEVELOPED ANY TYPE OF REACTION DURING OR AFTER DENTAL APPOINTMENT, VAGINAL/RECTAL EXAMINATION, SURGICAL PROCEDURE, OR ANY OTHER EXPOSURE?NO LATEX RISK : HAVE YOU EVER HAD ANY DIFFICULTY BREATHING OR HIVES AFTER EATING OR HANDLING ANY FRUITS, OR VEGETABLES; SUCH KIWI, BANANAS, STONE FRUITS, OR CHESTNUTSNO LATEX RISK : DO YOU HAVE A PREVIOUS PERSONAL HISTORY OF MORE THAN NINE SURGERIES, SPINA BIFIDA, OR REPEATED CATHERIZATIONS? NO LATEX RISK : ARE YOU FREQUENTLY EXPOSED TO LATEX PRODUCTS IN YOUR OCCUPATION?NO DATE ASKED : 06/29/2018 CAFFEINE CAFFEINE USE?YES HOW OFTEN AND HOW MUCH? 2 CUPS COFFEE/DAY AND AN OCC. SODA ADVANCE DIRECTIVE ADVANCE DIRECTIVE DISCUSSED WITH PATIENT:YES PT STATES HE HAS HCP AND WILL BRING IN COPY AT NEXT VISIT. STATES COPY IS ON FILE WITH MANAGER ASSET MANAGEMENT'S OFFICE. ANGLICAN [id number] GNOSTICIST NO CONGREGATION BELIEFS THAT WOULD IMPACT HEALTH CARE. MARITAL STATUS: . ALCOHOL SCREENING DID YOU HAVE A DRINK CONTAINING ALCOHOL IN THE PAST YEAR?YES HOW OFTEN DID YOU HAVE A DRINK CONTAINING ALCOHOL IN THE PAST YEAR?MONTHLY OR LESS (1 POINT) POINTS1 INTERPRETATIONNEGATIVE HAS LIVING WILL, POA , HCP ON FILE WITH HIS MANAGER ASSET MANAGEMENT, WILL BRING COPY AT NEXT VISIT. REVEIWED WITH PT 06/29/18 BV. HOSPITALIZATION/MAJOR DIAGNOSTIC PROCEDURE SEE ABOVE HAD CARDIAC CATH 1 WEEK AGO (NOV 17) WITH RESULTS NEGATIVE REVIEW OF SYSTEMS REVIEWED BY: PROVIDER: SHADI BARRY CARTON FORMING MACHINE HELPER-C . CONSTITUTIONAL: ANY CHANGE IN YOUR MEDICAL CONDITION? YES, C5,6,7 PINCHED, WENT TO PT AND RESOLVED . CHILLS NO . FEVER NO . INFECTION: DO YOU HAVE NEW INFECTIONS? NO . DO YOU HAVE HISTORY OF MRSA? NO . MUSCULOSKELETAL: ANY NEW PATTERNS OF PAIN OR NUMBNESS? NO . GASTROENTEROLOGY: ANY NEW CHANGE IN BOWEL CONTROL? NO . GENITOURINARY: ANY NEW CHANGE IN BLADDER CONTROL? YES, PT C/O FREQUENCY X 2 DAYS, TOOK SAMPLE TO [facility] . IS THERE A CHANCE YOU COULD BE ? NO . HEMATOLOGY/LYMPH: DO YOU TAKE ANY BLOOD THINNERS? (FOR EXAMPLE- COUMADIN, PLAVIX, AGGRENOX, PLATEL, PRADAXA, OR XARELTO) YES, PLAVIX . WHEN WAS YOUR LAST DOSE? DATE: TIME: . NEUROLOGY: HAVE YOU FALLEN IN THE PAST 12 MONTHS? NO . ANY NEW EXTREMITY NUMBNESS OR WEAKNESS? NO . CARDIOLOGY: DO YOU HAVE A PACEMAKER OR DEFIBRILLATOR? NO . RESPIRATORY: HAVE YOU BEEN SICK IN THE PAST WEEK? YES, PNEUMONIA AND BRONCHITIS TAKING PREDNISONE FOR THIS STILL COUGHING UP YELLOW-GREEN MUCOUS . FEVER YES, 102 WITH PNEUMONIA RESOLVED . FLU LIKE SYMPTOMS? NO . COUGH YES, YELLOW-GREEN . INTEGUMENTARY: DO YOU HAVE ANY RASHES OR OPEN SORES? NO . ALLERGIC/IMMUNO: ARE YOU ALLERGIC TO IV DYE? NO . ANY NEW ALLERGIES? NOT SURE STARTED ON A NEW MEDICATION, CAN'T REMEMBER NAME, DEVELOPED THRUSH IN MOUTH, SEEING PCP FOR THIS TOMORROW . PSYCHIATRIC: DO YOU HAVE THOUGHTS OF HURTING YOURSELF OR SOMEONE ELSE? NO . ARE YOU ABUSED, NEGLECTED, OR IN AN UNSAFE ENVIRONMENT? NO . ENDOCRINOLOGY: ARE YOU DIABETIC? YES . OTHER: DO YOU NEED ANY PRESCRIPTIONS? NO . IF YES, PLEASE LIST: ____ . ANY NEW PROBLEMS WITH YOUR MEDICATIONS? YES . WHEN DID YOU LAST EAT? ____ . WHEN DID YOU LAST DRINK? ____ . WHAT DID YOU LAST DRINK? ____ . NAME OF PERSON DRIVING YOU HOME? ____ . DO YOU HAVE ANY OTHER QUESTIONS OR CONCERNS NO . VITAL SIGNS WT 185.8 LBS, HT 66", BMI 29.99 INDEX, BP 141/75 MM HG, HR 92 /MIN, RR 18 /MIN, TEMP 96.6 F, OXYGEN SAT % 93%, NA INITIALS AW 1343, REVIEWED BY: ANEUDY. EXAMINATION GENERAL EXAMINATION: GENERALNO ACUTE DISTRESS, WELL NOURISHED AND HYDRATED. PSYCHAPPROPRIATE MOOD AND AFFECT . LUNGS:CLEAR TO AUSCULTATION BILATERALLY, NO WHEEZES, RHONCHI, RALES. HEART:NO MURMURS, REGULAR RATE AND RHYTHM. ASSESSMENTS INTERVERTEBRAL DISC DISORDER WITH RADICULOPATHY OF LUMBOSACRAL REGION - M51.17 (PRIMARY) CERVICALGIA - M54.2 TREATMENT INTERVERTEBRAL DISC DISORDER WITH RADICULOPATHY OF LUMBOSACRAL REGION CLINICAL NOTES: 67 YEAR OLD MALE IN FOR CHRONIC PAIN FOLLOW UP. HE STATES HIS PAIN HAS RESOLVED FOR THE MOST PART. GIVEN PRESENTING SYMPTOMS AND RESULTS OF PHYSICAL EXAMINATION RECOMMENDED THAT HE CALL THE OFFICE FOR FOLLOW UP SHOULD SYMPTOMS RETURN. PATIENT HAS EXPRESSED UNDERSTANDING OF AND WAS IN AGREEMENT WITH TX PLAN. GIVEN TIME TO ASK QUESTIONS AND EXPRESS CONCERNS. , [employer] REGISTRY REVIEWED AND DEMONSTRATES COMPLLIANCE. (REF # [id number] ) BRINGS IN MEDICATIONS WHICH IS APPROPRIATE FOR WHAT WAS DISPENSED. RECENT URINE TOXICOLOGY REVIEWED. NO UNAUTHORIZED MEDICATIONS. NO ILLICIT SUBSTANCES AND PRESCRIBED MEDICATIONS WERE PRESENT. PROCEDURE CODES FA211 ESTABILISHED PATIENT [facility] CHARGE DISPOSITION & COMMUNICATION ELECTRONICALLY SIGNED BY CRISTOFER SAUNDERS ON 10/24/2018 AT 10:33 AM EDT DISCLAIMER : THIS IS A VISIT SUMMARY EXTRACTED FROM THE [employer] CHART. IT IS NOT A COPY OF THE [employer] PROGRESS NOTE. LORRIE
== END ==
LOC: M PAIN 13:30
PROVIDERS: ATTEND Family Medicine
DX: M51.17 Intervertebral disc disorders with radiculopathy, lumbosacral region (principal); M54.2 Cervicalgia; I10 Essential (primary) hypertension; E11.9 Type 2 diabetes mellitus without complications; I25.2 Old myocardial infarction; E03.9 Hypothyroidism, unspecified; Z95.5 Presence of coronary angioplasty implant and graft; Z87.891 Personal history of nicotine dependence; Z98.1 Arthrodesis status; Z90.49 Acquired absence of other specified parts of digestive tract; Z96.651 Presence of right artificial knee joint; Z79.84 Long term (current) use of oral hypoglycemic drugs; Z79.891 Long term (current) use of opiate analgesic; Z79.899 Other long term (current) drug therapy; Z88.8 Allergy status to other drugs, medicaments and biological substances